=== PATIENT | female | born 1985 | race Caucasian/White ===

== ENCOUNTER 2017-02-18 16:26 | Emergency (ER) | payer OTHER ==
--- NOTE | 2017-02-18 16:40 | ED Physician Documentation ---
PD HPI URI - Stated complaint Stated Complaint: SORE THROAT - Chief complaint Chief Complaint: Heent - History obtained from History obtained from: Patient - History of Present Illness Timing - onset: How many days ago (few) Timing duration: Days Timing details: Gradual onset, Still present Associated symptoms: Fever, Chills, Sore throat, Swollen nodes. 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 HEENT: Tonsil/Adenoidectomy - Present Medications Home Medications: Ambulatory Orders Medication Instructions Recorded Confirmed Omeprazole Magnesium [Prilosec] 10 mg PO DAILY 05/21/16 02/18/17 Cephalexin [Keflex] 500 mg PO TID #20 capsule 02/18/17 Dexamethasone [Decadron] 4 mg PO DAILY #5 tablet 02/18/17 Tramadol HCl 50 mg PO Q6H PRN #20 tablet 02/18/17 - Allergies Allergies/Adverse Reactions: Allergies Allergy/AdvReac Type Severity Reaction Status Date / Time amoxicillin Allergy Unknown Verified 02/18/17 16:58 clindamycin Allergy Unknown Verified 02/18/17 16:58 Penicillins Allergy Unknown Verified 02/18/17 16:58 - Social History Does the pt smoke?: No Smoking Status: Former smoker Does the pt drink ETOH?: No Does the pt have substance abuse?: No PD ED PE NORMAL - Vitals Vital signs reviewed: Yes - General General: Alert and oriented X 3, Well developed/nourished - HEENT HEENT: Ears normal, Moist mucous membranes - Neck Neck: Supple, no meningeal sign, Other (anterior adenopathy) - Cardiac Cardiac: RRR, No murmur - Respiratory Respiratory: Clear bilaterally - Abdomen Abdomen: Soft, Non tender - Derm Derm: Normal color, Warm and dry, No rash Results - Vitals Vitals: Oxygen O2 Source Room air - Labs Labs: Microbiology 02/18/17 16:55 Group A Strep Throat Culture - Final Throat Laboratory Tests 02/18/17 16:55 Group A Strep Rapid Negative PD MEDICAL DECISION MAKING - ED course Complexity details: reviewed results, considered differential, d/w patient Departure - Departure Disposition: 01 Home, Self Care Clinical Impression: Pharyngitis Qualifiers: Pharyngitis/tonsillitis etiology: unspecified etiology Qualified Code(s): J02.9 - Acute pharyngitis, unspecified Condition: Stable Record reviewed to determine appropriate education?: Yes Instructions: ED Pharyngitis Viral Report Pending Prescriptions: Dexamethasone [Decadron] 4 mg PO DAILY #5 tablet Cephalexin [Keflex] 500 mg PO TID #20 capsule Tramadol HCl 50 mg PO Q6H PRN #20 tablet PRN Reason: Pain Comments: Drink lots of fluids. Tylenol for fevers/pains. Can take Ibuprofen as well. Decadron for inflammation daily for few days. If culture is positive, then would want to start the Cephalexin as well. Follow up PMD. Discharge Date/Time: 02/18/17 18:20
[2017-02-18 17:16] LABS: RAPID STREP SCREEN REAGENT QC YELLOW (YELLOW)
[2017-02-18] MEDS ORDERED: DEXAMETHASONE 10 MG/ML VIAL PO STA (17:47)
[2017-02-18] MEDS ORDERED: ACETAMINOPHEN 325 MG TABLET PO STA (17:47)
[2017-02-18] MEDS ORDERED: DEXAMETHASONE 10 MG/ML VIAL ONE (18:02)
[2017-02-18] MEDS ORDERED: ACETAMINOPHEN 325 MG TABLET PO ONE (18:02)
[2017-02-18 18:07] VITALS: BP 145/96
== END 2017-02-18 18:20 | disposition home or self-care (01) ==
LOC: ED 16:26
DX: J02.9 Acute pharyngitis, unspecified (principal); K21.9 Gastro-esophageal reflux disease without esophagitis; Z87.891 Personal history of nicotine dependence
CPT/HCPCS: 87070; 87430; 99283; A9270

== ENCOUNTER 2019-02-16 10:28 | Emergency (ER) | payer OTHER ==
[2019-02-16 10:43] VITALS: BP 170/107
[2019-02-16] MEDS ORDERED: BUFFERED LIDOCAINE 10 ML SYRINGE SUBQ STA (12:35)
--- NOTE | 2019-02-16 12:38 | ED Physician Documentation ---
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 HEENT: Tonsil/Adenoidectomy - Present Medications Home Medications: Ambulatory Orders Medication Instructions Recorded Confirmed Omeprazole Magnesium [Prilosec] 10 mg PO DAILY 05/21/16 02/18/17 Cephalexin [Keflex] 500 mg PO TID #20 capsule 02/18/17 Tramadol HCl 50 mg PO Q6H PRN #20 tablet 02/18/17 dexAMETHasone [Decadron] 4 mg PO DAILY #5 tablet 02/18/17 Sulfamethoxazole/Trimethoprim 1 each PO BID #14 tablet 02/16/19 [Sulfamethoxazole-Tmp Ds Tablet] - Allergies Allergies/Adverse Reactions: Allergies Allergy/AdvReac Type Severity Reaction Status Date / Time amoxicillin Allergy Unknown Verified 02/18/17 16:58 clindamycin Allergy Unknown Verified 02/18/17 16:58 Penicillins Allergy Unknown Verified 02/18/17 16:58 - Social History Does the pt smoke?: No Smoking Status: Never smoker Does the pt drink ETOH?: No Does the pt have substance abuse?: No - Immunizations Immunizations are current?: Yes - POLST Patient has POLST: No PD ED PE NORMAL - Vitals Vital signs reviewed: Yes - General General: Alert and oriented X 3, No acute distress - Derm Derm: Other (There is a small pointed abscess with significant surrounding cellulitis on the posterior medial part of the left upper extremity) - Neuro Neuro: Alert and oriented X 3, Normal speech Results - Vitals Vitals: Vital Signs - 24 hr 02/16/19 10:40 Temperature 36.4 C L Heart Rate 82 Respiratory 20 Rate Blood Pressure 170/107 H O2 Saturation 99 Oxygen O2 Source Room air Procedures - Abscess I&D (location) L arm Preparation: Alcohol, Lidocaine 1% Incision: Incised with scalpel, Purulent drainage, Loculations broken, Culture obtained. No: Packed (too small) Other: Pt tolerated well, Dressing applied, Antibiotic prescribed Departure - Departure Disposition: Home, Self Care Clinical Impression: Abscess Condition: Good Record reviewed to determine appropriate education?: Yes Instructions: ED Abscess IandD Prescriptions: Sulfamethoxazole/Trimethoprim [Sulfamethoxazole-Tmp Ds Tablet] 1 each PO BID #14 tablet Comments: We are performing a wound culture, the results should be done in 48-72 hours. If antibiotic change is necessary we will call you. Return if worse in the meantime, especially if you develop increased pain, fevers, cannot keep down the medication. Otherwise follow-up with your physician in approximately 2-3 days. Your blood pressure was elevated today on check into the emergency department. This does not mean that you have hypertension, it is a common phenomenon to come to the emergency department and have elevated blood pressure. I recommend that you see your primary care physician within the week to have it rechecked when you are feeling better.
== END 2019-02-16 13:04 | disposition home or self-care (01) ==
LOC: ED 10:28
DX: L02.414 Cutaneous abscess of left upper limb (principal); R03.0 Elevated blood-pressure reading, without diagnosis of hypertension
CPT/HCPCS: 10060; 87070; 87181; 87205; 99283

== ENCOUNTER 2019-06-24 17:20 | Emergency (ER) | payer OTHER ==
--- NOTE | 2019-06-24 19:01 | ED Physician Documentation ---
PD HPI URI - Stated complaint Stated Complaint: FEVER/SORE THROAT/COUGH/STUFFY - Chief complaint Chief Complaint: Fever - History obtained from History obtained from: Patient - History of Present Illness Timing - onset: Other (Sick a few weeks ago with cough, body aches chills and runny nose. She was almost better and then got sick again today with fever to 100.4, sinus pain, and cough. 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 HEENT: Tonsil/Adenoidectomy - Present Medications Home Medications: Ambulatory Orders Medication Instructions Recorded Confirmed Omeprazole Magnesium [Prilosec] 10 mg PO DAILY 05/21/16 02/18/17 Cephalexin [Keflex] 500 mg PO TID #20 capsule 02/18/17 Tramadol HCl 50 mg PO Q6H PRN #20 tablet 02/18/17 dexAMETHasone [Decadron] 4 mg PO DAILY #5 tablet 02/18/17 Sulfamethoxazole/Trimethoprim 1 each PO BID #14 tablet 02/16/19 [Sulfamethoxazole-Tmp Ds Tablet] Azithromycin [Zithromax] 1 tab PO DAILY #6 tablet 06/24/19 guaiFENesin/CODEINE [Robitussin AC] 5 - 10 ml PO Q6H PRN #120 ml 06/24/19 predniSONE [Deltasone] 60 mg PO DAILY 5 Days #15 tablet 06/24/19 - Allergies Allergies/Adverse Reactions: Allergies Allergy/AdvReac Type Severity Reaction Status Date / Time acetaminophen [From NyQuil] Allergy Unknown Verified 06/24/19 17:36 amoxicillin Allergy Unknown Verified 02/18/17 16:58 clindamycin Allergy Unknown Verified 02/18/17 16:58 dextromethorphan Allergy Unknown Verified 06/24/19 17:36 [From NyQuil] doxylamine [From NyQuil] Allergy Unknown Verified 06/24/19 17:36 ibuprofen Allergy Unknown Verified 06/24/19 17:36 [From DayQuil Sinus Pressure/Pain] Penicillins Allergy Unknown Verified 02/18/17 16:58 pseudoephedrine Allergy Unknown Verified 06/24/19 17:36 [From DayQuil Sinus Pressure/Pain] - Social History Does the pt smoke?: No Smoking Status: Never smoker Does the pt drink ETOH?: No Does the pt have substance abuse?: No - Immunizations Immunizations are current?: Yes - POLST Patient has POLST: No PD ED PE NORMAL - Vitals Vital signs reviewed: Yes - General General: Alert and oriented X 3, No acute distress - HEENT HEENT: Other (Retracted TMs, oropharynx normal) - Neck Neck: Supple, no meningeal sign, No bony TTP - Cardiac Cardiac: RRR, No murmur - Respiratory Respiratory: No respiratory distress, Clear bilaterally - Neuro Neuro: Alert and oriented X 3, Normal speech Results - Vitals Vitals: Vital Signs - 24 hr 06/24/19 17:36 Temperature 37.2 C Heart Rate 116 H Respiratory 18 Rate Blood Pressure 174/106 H O2 Saturation 98 Oxygen O2 Source Room air - Labs Labs: Laboratory Tests 06/24/19 06/24/19 17:40 17:40 Influenza A (Rapid) Negative Influenza B (Rapid) Negative Group A Strep Rapid Negative PD MEDICAL DECISION MAKING - ED course ED course: The combination of a biphasic illness with retracted TMs and fever would suggest sinusitis meriting Idsa criteria for antibiotic treatment Note that we did not use amoxicillin/penicillin because of allergy to same. Departure - Departure Disposition: 01 Home, Self Care Clinical Impression: Sinusitis Qualifiers: Sinusitis location: maxillary Chronicity: acute Recurrence: non-recurrent Qualified Code(s): J01.00 - Acute maxillary sinusitis, unspecified Condition: Good Record reviewed to determine appropriate education?: Yes Instructions: ED Sinusitis Abx Tx Prescriptions: Azithromycin [Zithromax] 1 tab PO DAILY #6 tablet guaiFENesin/CODEINE [Robitussin AC] 5 - 10 ml PO Q6H PRN #120 ml PRN Reason: Cough predniSONE [Deltasone] 60 mg PO DAILY 5 Days #15 tablet Comments: Off work today and tomorrow. Return for new or worsening symptoms. Wash her hands well. Drink plenty fluids. Your blood pressure was elevated today on check into the emergency department. This does not mean that you have hypertension, it is a common phenomenon to come to the emergency department and have elevated blood pressure. I recommend that you see your primary care physician within the week to have it rechecked when you are feeling better.
[2019-06-24 19:08] VITALS: BP 168/102
== END 2019-06-24 19:08 | disposition home or self-care (01) ==
LOC: ED 17:20
DX: J01.00 Acute maxillary sinusitis, unspecified (principal); R03.0 Elevated blood-pressure reading, without diagnosis of hypertension
CPT/HCPCS: 87070; 87275; 87276; 87430; 99283; 99284

== ENCOUNTER 2021-06-21 10:00 | Emergency (ER) | payer OTHER ==
--- NOTE | 2021-06-21 10:22 | ED Physician Documentation ---
PD HPI URI - Stated complaint Stated Complaint: C+,SOA,COUGH,FEVER - Chief complaint Chief Complaint: Resp - History obtained from History obtained from: Patient - History of Present Illness Timing - onset: How many days ago (3) Timing duration: Days (3) Timing details: Abrupt onset, Still present Associated symptoms: Fever, Chills, Nasal congestion, Sore throat, Dry cough, Dyspnea. No: NVD Contributing factors: Sick contact Improves by: No: Rest Worsened by: Activity, Other (cough) Similar symptoms before: Diagnosis (COVID infection.) Recently seen: Clinic (had J&J vaccine on 06/04, with some aches and malaise for 2 days. Then improved. Cough and fevers for the past 5 days (onset 06/17) and had positive COVID test rapid on 06/18. Increased cough and dyspnea with persistent fevers since onset.) Review of Systems Constitutional: reports: Fever (for 4-5 days), Chills, Myalgias, Fatigue Nose: reports: Rhinorrhea / runny nose, Congestion Cardiac: reports: Chest pain / pressure (with coughing). denies: Palpitations, Pedal edema, Calf pain Respiratory: reports: Dyspnea, Cough, Wheezing GI: reports: Nausea. denies: Abdominal Pain, Vomiting, Diarrhea Skin: denies: Rash Neurologic: reports: Generalized weakness, Headache. denies: Near syncope, Altered mental status Immunocompromised: denies: Immunocompromised PD PAST MEDICAL HISTORY - Past Medical History Cardiovascular: None Respiratory: Asthma (but had not had symptoms for years. No current MDI. 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 HEENT: Tonsil/Adenoidectomy - Present Medications Home Medications: Ambulatory Orders Medication Instructions Recorded Confirmed Omeprazole Magnesium [Prilosec] 10 mg PO DAILY 05/21/16 02/18/17 Tramadol HCl 50 mg PO Q6H PRN #20 tablet 02/18/17 cephALEXin [Keflex] 500 mg PO TID #20 capsule 02/18/17 dexAMETHasone [Decadron] 4 mg PO DAILY #5 tablet 02/18/17 Sulfamethoxazole/Trimethoprim 1 each PO BID #14 tablet 02/16/19 [Sulfamethoxazole-Tmp Ds Tablet] Azithromycin [Zithromax] 1 tab PO DAILY #6 tablet 06/24/19 guaiFENesin/CODEINE [Robitussin AC] 5 - 10 ml PO Q6H PRN #120 ml 06/24/19 predniSONE [Deltasone] 60 mg PO DAILY 5 Days #15 tablet 06/24/19 Albuterol Sulf [Ventolin Hfa 3 - 4 puffs INH Q4HR PRN #1 inhaler 06/21/21 Inhaler] Benzonatate [Tessalon] 100 mg PO TID PRN #20 cap 06/21/21 Ondansetron Odt [Zofran] 4 mg TL Q6H PRN #15 tablet 06/21/21 dexAMETHasone [Decadron] 4 mg PO DAILY #5 tablet 06/21/21 - Allergies Allergies/Adverse Reactions: Allergies Allergy/AdvReac Type Severity Reaction Status Date / Time acetaminophen [From NyQuil] Allergy Unknown Verified 06/24/19 17:36 amoxicillin Allergy Unknown Verified 02/18/17 16:58 clindamycin Allergy Unknown Verified 02/18/17 16:58 dextromethorphan Allergy Unknown Verified 06/24/19 17:36 [From NyQuil] doxylamine [From NyQuil] Allergy Unknown Verified 06/24/19 17:36 ibuprofen Allergy Unknown Verified 06/24/19 17:36 [From DayQuil Sinus Pressure/Pain] Penicillins Allergy Unknown Verified 02/18/17 16:58 pseudoephedrine Allergy Unknown Verified 06/24/19 17:36 [From DayQuil Sinus Pressure/Pain] - Social History Does the pt smoke?: No Smoking Status: Never smoker Does the pt drink ETOH?: No Does the pt have substance abuse?: No - Immunizations Immunizations are current?: Yes - POLST Patient has POLST: No PD ED PE NORMAL - Vitals Vital signs reviewed: Yes (tachycardic. Sats good. ) - General General: Alert and oriented X 3, No acute distress, Well developed/nourished - HEENT HEENT: Ears normal, Pharynx benign. No: Moist mucous membranes - Neck Neck: Supple, no meningeal sign, No adenopathy - Cardiac Cardiac: No: RRR (regular but tachycardic) - Respiratory Respiratory: No: Clear bilaterally (scattered exp wheezes and decreased sounds generally. ) - Abdomen Abdomen: Soft, Non tender - Derm Derm: Normal color, Warm and dry - Extremities Extremities: Normal ROM s pain, No edema, No calf tenderness / cord - Neuro Neuro: Alert and oriented X 3, No motor deficit, Normal speech Results - Vitals Vitals: Vital Signs - 24 hr 06/21/21 06/21/21 06/21/21 10:14 11:26 11:49 Temperature 38.8 C H Heart Rate 114 H 105 H 107 H Respiratory 20 22 Rate Blood Pressure 155/108 H 144/98 H O2 Saturation 96 98 06/21/21 13:04 Temperature 37.8 C Heart Rate 101 H Respiratory 16 Rate Blood Pressure 143/92 H O2 Saturation 96 Oxygen O2 Source Room air - Rads (name of study) chest xray Radiology: Prelim report reviewed (no focal infiltrates. Has diffuse interstitial changes c/w viral pneumonia. ), See rad report PD MEDICAL DECISION MAKING - ED course Complexity details: reviewed results (CXR c/w COVID. ), re-evaluated patient (she feel improved with MDI, meds, and fluids. ), considered differential (unfortunately got COVID soon after J&J vaccine, but presume immunity had not increased enough before exposures (vaccine 2 weeks prior to symptoms, only few days before exposure at work).), d/w patient, d/w health consultant (With pharmacy regarding monoclonal antibodies. We have a limited supply with only 12 doses. Given the patient's recent vaccination on the , her antibody levels should be on the significant increase right now so holding on the infusion.) ED course: She did ask about Ivermectin Rx and I told her my understanding is that the studies are not conclusive (some show improved symptoms sooner, but no change in hospitalization nor hypoxia/oxygen need, so seems placebo/scoring bias, as objective measures not improved) and current CDC does not recommend its use for COVID. Departure - Departure Disposition: 01 Home, Self Care Clinical Impression: COVID-19 virus infection Dyspnea Qualifiers: Dyspnea type: shortness of breath Qualified Code(s): R06.02 - Shortness of breath; R06.00 - Dyspnea, unspecified; R06.01 - Orthopnea Condition: Stable Record reviewed to determine appropriate education?: Yes Instructions: ED URI Viral W Wheezing Prescriptions: Albuterol Sulf [Ventolin Hfa Inhaler] 3 - 4 puffs INH Q4HR PRN #1 inhaler PRN Reason: Shortness Of Air/Wheezing dexAMETHasone [Decadron] 4 mg PO DAILY #5 tablet Benzonatate [Tessalon] 100 mg PO TID PRN #20 cap PRN Reason: Cough Ondansetron Odt [Zofran] 4 mg TL Q6H PRN #15 tablet PRN Reason: Nausea / Vomiting Comments: [facility] Your chest x-ray does not show any localized area of infection. There are some mild general inflammation consistent with viral infection. We can try to improve your airflow and decrease inflammation of the airway and also general body aches with dosing of steroid daily for the next 5 days as well as albuterol inhaler regularly. Benzonatate as needed for cough. Ondansetron if needed for nausea. Try to stay well-hydrated. Tylenol or ibuprofen for fevers and pains. You have an oximeter at home so be watching for lower oxygenation in the lower 90s or below 90. Return if worsening symptoms or low oxygenation uncontrolled vomiting or other concerns. Discharge Date/Time: 06/21/21 13:54
[2021-06-21] MEDS ORDERED: KETOROLAC 15 MG/ML VIAL IVP STA (10:48)
[2021-06-21] MEDS ORDERED: SODIUM CHLORIDE 0.9% 1,000 ML IV STA (10:48)
[2021-06-21] MEDS ORDERED: DEXAMETHASONE 10 MG/ML VIAL IVP STA (10:48)
[2021-06-21] MEDS ORDERED: BENZONATATE 100 MG CAPSULE PO STA (10:48)
[2021-06-21] MEDS ORDERED: ALBUTEROL 1 PUFF INH STA (10:48)
--- NOTE | 2021-06-21 11:13 | XRAY Report ---
PROCEDURE: Chest 1 View X-Ray INDICATIONS: Cough, dyspnea TECHNIQUE: One view of the chest was acquired. COMPARISON: None. FINDINGS: Surgical changes and devices: None. Lungs and pleura: No pleural effusions or pneumothorax. Patchy bilateral mixed interstitial and airs pace opacities. Mediastinum: Mediastinal contours appear normal. Heart size is normal. Bones and chest wall: No suspicious bony lesions. Overlying soft tissues appear unremarkable. IMPRESSION: Patchy mixed bilateral interstitial and airspace opacities. Findings would be consistent with a diagn osis of atypical or viral pneumonia. Reviewed by: Rell Stout MD on 06/21/2021 11:11 AM PDT Approved by: Rell Stout MD on 06/21/2021 11:11 AM PDT Station ID: [id number]
[2021-06-21] MEDS ORDERED: ACETAMINOPHEN 325 MG TABLET PO STA (12:48)
[2021-06-21 13:05] VITALS: BP 143/92
== END 2021-06-21 13:54 | disposition home or self-care (01) ==
LOC: ED 10:00
DX: U07.1 COVID-19 (principal)
CPT/HCPCS: 71045; 94640; 94664; 96361; 96374; 96375; 99283; 99284; A9270

== ENCOUNTER 2021-06-23 15:39 | Inpatient (IN) | payer OTHER ==
--- NOTE | 2021-06-23 17:15 | ED Physician Documentation ---
History of Present Illness - Stated complaint Stated Complaint: C+,SOA - Chief complaint Chief Complaint: Resp - Additonal information Additional information: 35-year-old female presents emergency department for evaluation of worsening COVID-19 symptoms. She received a Kvng & Kvng vaccine on 04 June unfortunately she tested positive on 18 June. She was seen here 2 days ago with symptoms that were at that time felt to be mild. However over the last 48 to 72 hours she has had progressive chills, headache as well as fever. She now has labored breathing and is hypoxic on room air saturations 87%. Patient reports that she has never felt this bad in her life. She feels loopy and out of sorts. She is scared. Patient is a very rare tobacco user. Socially uses alcohol but on the weekends only. Denies any history of heart or lung problem otherwise. She is obese. Review of Systems Constitutional: reports: Fever, Chills, Myalgias, Fatigue Eyes: reports: Reviewed and negative Ears: reports: Reviewed and negative Nose: reports: Reviewed and negative Throat: reports: Reviewed and negative Cardiac: reports: Palpitations. denies: Pedal edema, Calf pain Respiratory: reports: Dyspnea, Cough, Wheezing. denies: Hemoptysis GI: reports: Nausea, Vomiting. denies: Abdominal Pain, Diarrhea : denies: Dysuria, Frequency, Hesitancy Skin: reports: Reviewed and negative Musculoskeletal: reports: Back pain Neurologic: reports: Reviewed and negative Psychiatric: reports: Reviewed and negative PD PAST MEDICAL HISTORY - Past Medical History Cardiovascular: None Respiratory: Asthma (but had not had symptoms for years. No current MDI. 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 HEENT: Tonsil/Adenoidectomy - Present Medications Home Medications: Ambulatory Orders Medication Instructions Recorded Confirmed Omeprazole Magnesium [Prilosec] 10 mg PO DAILY 05/21/16 02/18/17 Tramadol HCl 50 mg PO Q6H PRN #20 tablet 02/18/17 cephALEXin [Keflex] 500 mg PO TID #20 capsule 02/18/17 dexAMETHasone [Decadron] 4 mg PO DAILY #5 tablet 02/18/17 Sulfamethoxazole/Trimethoprim 1 each PO BID #14 tablet 02/16/19 [Sulfamethoxazole-Tmp Ds Tablet] Azithromycin [Zithromax] 1 tab PO DAILY #6 tablet 06/24/19 guaiFENesin/CODEINE [Robitussin AC] 5 - 10 ml PO Q6H PRN #120 ml 06/24/19 predniSONE [Deltasone] 60 mg PO DAILY 5 Days #15 tablet 06/24/19 Albuterol Sulf [Ventolin Hfa 3 - 4 puffs INH Q4HR PRN #1 inhaler 06/21/21 Inhaler] Benzonatate [Tessalon] 100 mg PO TID PRN #20 cap 06/21/21 Ondansetron Odt [Zofran] 4 mg TL Q6H PRN #15 tablet 06/21/21 dexAMETHasone [Decadron] 4 mg PO DAILY #5 tablet 06/21/21 - Allergies Allergies/Adverse Reactions: Allergies Allergy/AdvReac Type Severity Reaction Status Date / Time acetaminophen [From NyQuil] Allergy Unknown Verified 06/23/21 16:58 amoxicillin Allergy Unknown Verified 06/23/21 16:58 clindamycin Allergy Unknown Verified 06/23/21 16:58 dextromethorphan Allergy Unknown Verified 06/23/21 16:58 [From NyQuil] doxylamine [From NyQuil] Allergy Unknown Verified 06/23/21 16:58 ibuprofen Allergy Unknown Verified 06/23/21 16:58 [From DayQuil Sinus Pressure/Pain] Penicillins Allergy Unknown Verified 06/23/21 16:58 pseudoephedrine Allergy Unknown Verified 06/23/21 16:58 [From DayQuil Sinus Pressure/Pain] - Social History Does the pt smoke?: No Smoking Status: Never smoker Does the pt drink ETOH?: No Does the pt have substance abuse?: No - Immunizations Immunizations are current?: Yes - POLST Patient has POLST: No PD ED PE EXPANDED - General General: Alert, Anxious, Other - Cardiac Cardiac: Tachy, Radial strong equal, Cap refill < 2 sec - Respiratory Respiratory: Clear to ausultation shadia, Labored, Other (Mild tachypnea. Faint scattered wheeze. No obvious retractions or accessory muscle use.) - Abdomen Abdomen: Normal Bowel sounds. No: Tender to palpation - Derm Derm: Normal color, Warm and dry. No: Rash - Extremities Extremities: Normal. No: Deformity, Tenderness - Neuro Neuro: Alert and Oriented X 3, CNII-XII intact - GCS Eye Opening: Spontaneous Motor: Obeys Commands Verbal: Oriented Total: 15 Results - Vitals Vitals: Vital Signs - 24 hr 06/23/21 06/23/21 16:58 17:05 Temperature 38.7 C H Heart Rate 105 H 103 H Respiratory 24 22 Rate Blood Pressure 143/90 H 143/90 H O2 Saturation 88 L 95 Oxygen O2 Source Nasal cannula Oxygen Flow Rate 4 - Labs Labs: Laboratory Tests 06/23/21 06/23/21 06/23/21 17:06 17:06 17:19 WBC 2.8 L RBC 3.75 L Hgb 12.4 Hct 36.6 L MCV 97.6 MCH 33.1 H MCHC 33.9 RDW 13.2 Plt Count 119 L MPV 11.0 H Neut # (Auto) 2.1 Lymph # (Auto) 0.5 L Irwin # (Auto) 0.2 Eos # (Auto) 0.0 Baso # (Auto) 0.0 Absolute Nucleated RBC 0.00 Band Neuts % (Manual) Not Reportable Abnorm Lymph % (Manual) Not Reportable Nucleated RBC % 0.0 Neutrophils # (Manual) Not Reportable Lymphocytes # (Manual) Not Reportable Monocytes # (Manual) Not Reportable Eosinophils # (Manual) Not Reportable Basophils # (Manual) Not Reportable Differential Comment MANUA Manual Slide Review Indicated WBC Morphology NORMAL APPEARANCE Platelet Estimate DECREASED (<130,000) Platelet Morphology NORMAL APPEARANCE RBC Morph Micro Appear NORMAL APPEARANCE Sodium 134 L Potassium 2.9 L Chloride 97 L Carbon Dioxide 24 Anion Gap 13.0 BUN 8 Creatinine 0.8 Estimated GFR (MDRD) 82 L Glucose 102 H Calcium 8.3 L Total Bilirubin 0.6 AST 45 H ALT 22 Alkaline Phosphatase 34 L Total Protein 6.5 L Albumin 3.2 Globulin 3.3 Albumin/Globulin Ratio 1.0 Lipase 51 Nasal Adenovirus (PCR) NOT DETECTED Nasal B. parapertussis DNA (PCR) NOT DETECTED Nasal Coronavir 229E PCR NOT DETECTED Nasal Coronavir HKU1 PCR NOT DETECTED Nasal Coronavir NL63 PCR NOT DETECTED Nasal Coronavir OC43 PCR NOT DETECTED Nasal Enterovir/Rhinovir PCR NOT DETECTED Nasal Influenza B PCR NOT DETECTED Nasal Influenza A PCR NOT DETECTED Nasal Parainfluen 1 PCR NOT DETECTED Nasal Parainfluen 2 PCR NOT DETECTED Nasal Parainfluen 3 PCR NOT DETECTED Nasal Parainfluen 4 PCR NOT DETECTED Nasal RSV (PCR) NOT DETECTED Nasal B.pertussis DNA PCR NOT DETECTED Nasal C.pneumoniae (PCR) NOT DETECTED Valente Human Metapneumo PCR NOT DETECTED Nasal M.pneumoniae (PCR) NOT DETECTED Nasal SARS-CoV-2 (PCR) DETECTED A PD MEDICAL DECISION MAKING - ED course Complexity details: reviewed results, re-evaluated patient, considered differential, d/w patient ED course: 35-year-old female who tested positive for COVID-19 on the presents the emergency department with worsening dyspnea, fatigue myalgias and fevers. Noted to be hypoxic here in room air 87%. Saturations improved with 3 liters nasal canula. CXR shows an evolving pneumonia likely secondary to COVID 19. Respiratory PCR remains positive for COVID 19. pt started on Azithromycin and given decadron. Will require inpatient admission for hypoxia in the setting of COVID 19 infection. Remdesivir to be ordered by inpatient providers. I have spoken with Dr. Rizzo who has agreed to evaluate and admit patient. Departure - Departure Disposition: 66 [facility] DC/Xfer Clinical Impression: Pneumonia due to COVID-19 virus, Hypoxia
[2021-06-23 17:18] LABS: HCT - HEMATOCRIT 36.6 % (37.0-47.0); HGB - HEMOGLOBIN 12.4 g/dL (12.0-16.0); LYMPHOCYTES # (AUTO) 0.5 10^3/uL (1.5-3.5); LYMPHOCYTES % (AUTO) 17.4 %; MEAN CORPUSCULAR HEMOGLOBIN 33.1 pg (27.0-31.0); MEAN CORPUSCULAR HGB CONC 33.9 g/dL (32.0-36.0); MEAN CORPUSCULAR VOLUME 97.6 fL (81.0-99.0); MONOCYTES # (AUTO) 0.2 10^3/uL (0.0-1.0); MONOCYTES % (AUTO) 7.1 %; NEUTROPHILS # (AUTO) 2.1 10^3/uL (1.5-6.6); NEUTROPHILS % (AUTO) 75.1 %; PLT - PLATELET COUNT 119 10^3/uL (130-450); RED BLOOD COUNT 3.75 10^6/uL (4.20-5.40); RED CELL DISTRIBUTION WIDTH 13.2 % (12.0-15.0); WHITE BLOOD COUNT 2.8 x10^3/uL (4.8-10.8)
[2021-06-23 17:22] LABS: SLIDE REVIEW? Indicated
[2021-06-23] MEDS ORDERED: AZITHROMYCIN INJ 500 MG in SODIUM CHLORIDE 0.9% 250 ML IV STA ×2 (17:23→17:42)
[2021-06-23] MEDS ORDERED: DOXYCYCLINE INJ 100 MG in SODIUM CHLORIDE 0.9% MINIBAG 100 ML IV STA (17:24)
[2021-06-23] MEDS ORDERED: DEXAMETHASONE 10 MG/ML VIAL PO STA ×2 (17:25→17:39)
[2021-06-23 17:30] LABS: ALBUMIN 3.2 g/dL (3.2-5.5); BILIRUBIN,TOTAL 0.6 mg/dL (0.2-1.0); CALCIUM 8.3 mg/dL (8.5-10.3); CREATININE 0.8 mg/dL (0.4-1.0); POTASSIUM 2.9 mmol/L (3.5-5.0); TOTAL PROTEIN 6.5 g/dL (6.7-8.2)
[2021-06-23] MEDS ORDERED: DEXAMETHASONE 10 MG/ML VIAL IV STA (17:40)
[2021-06-23 17:41] LABS: DIFFERENTIAL COMMENT MANUA; PLATELET ESTIMATE, MANUAL DECREASED (<130,000) (NORMAL); PLATELET MORPHOLOGY NORMAL APPEARANCE (NORMAL); RBC MORPHOLOGY (MULTIPLE) NORMAL APPEARANCE (NORMAL); WBC MORPHOLOGY (MULTIPLE) NORMAL APPEARANCE (NORMAL)
[2021-06-23] MEDS ORDERED: ONDANSETRON 4 MG/2 ML VIAL IVP PRN (17:46)
[2021-06-23] MEDS ORDERED: ACETAMINOPHEN 325 MG TABLET PO PRN (17:46)
--- NOTE | 2021-06-23 18:04 | XRAY Report ---
PROCEDURE: Chest 1 View X-Ray INDICATIONS: COVID TECHNIQUE: One view of the chest was acquired. COMPARISON: 06/21/2021 FINDINGS: Surgical changes and devices: None. Lungs and pleura: Patchy bilateral pulmonary infiltrates have significantly worsened in the interval. Pleural spaces are clear. Mediastinum: Mediastinal contours appear normal. Heart size is normal. Bones and chest wall: No suspicious bony lesions. Overlying soft tissues appear unremarkable. IMPRESSION: Worsening bilateral pulmonary infiltrates consistent with pneumonia Reviewed by: Quinn Disla MD on 06/23/2021 5:03 PM [facility] Approved by: Quinn Disla MD on 06/23/2021 5:03 PM AKDT Station ID: [id number]
[2021-06-23 18:24] LABS: B. PARAPERTUSSIS- RESP PCR PAN NOT DETECTED; B. PERTUSSIS- RESP PCR PANEL NOT DETECTED; C. PNEUMONIAE- RESP PCR PANEL NOT DETECTED; CORONAVIRUS 229E-RESP PCR NOT DETECTED; CORONAVIRUS HKU1-RESP PCR NOT DETECTED; CORONAVIRUS NL63-RESP PCR NOT DETECTED; CORONAVIRUS OC43-RESP PCR NOT DETECTED; HUMAN METAPNEUMOVIRUS NOT DETECTED; INFLUENZA A- RESP PCR PANEL NOT DETECTED; INFLUENZA B - RESP PCR PANEL NOT DETECTED; M. PNEUMONIAE- RESP PCR PANEL NOT DETECTED; PARAINFLUENZA VIRUS 1 NOT DETECTED; PARAINFLUENZA VIRUS 2 NOT DETECTED; PARAINFLUENZA VIRUS 3 NOT DETECTED; PARAINFLUENZA VIRUS 4 NOT DETECTED; RHINOVIRUS/ENTEROVIRUS NOT DETECTED; RSV- RESP PCR PANEL NOT DETECTED; SARS-CoV-2 -RESP PCR PANEL DETECTED
[2021-06-23 18:58] LABS: BILIRUBIN,URINE NEGATIVE (NEGATIVE); GLUCOSE, URINE (UA) NEGATIVE (NEGATIVE); KETONES,URINE (UA) NEGATIVE (NEGATIVE); LEUKOCYTE ESTERASE, URINE NEGATIVE (NEGATIVE); NITRITE,URINE NEGATIVE (NEGATIVE); OCCULT BLOOD,URINE SMALL (NEGATIVE); PROTEIN,URINE 30 mg/dL (NEGATIVE); UROBILINOGEN,URINE 0.2 (NORMAL) E.U./dL (NORMAL)
[2021-06-23 19:00] LABS: CLARITY,URINE CLEAR (CLEAR); HCG UR QUAL NEGATIVE
[2021-06-23 19:05] LABS: BACTERIA,URINE Rare /HPF (None Seen); MUCUS,URINE Few Strands; RBC,URINE 0-5 /HPF (0-5); SQUAMOUS EPITHELIAL CELL,UR FEW Squamous (<= Few); WBC,URINE 0-3 /HPF (0-5)
--- NOTE | 2021-06-23 19:05 | HISTORY & PHYSICAL EXAMINATION ---
Chief Complaint - Chief Complaint Chief Complaint: difficult to breath History of Present Illness - Admitted From Admitted From:: ER - History Obtained From Records Reviewed: [facility] History obtained from: Pt Exam Limitations: no - History of Present Illness HPI Comment/Other: This is a 35-year-old female With a past medical history significant noted for asthma, GERD, obese who presents emergency department for difficult breathing and worsening COVID-19 symptoms. Pt report She received a Kvng & Kvng vaccine but unfortunately she tested positive on 18 June. She was seen at ER 2 days ago. pt was d/c then. But over the last 3 days she has had worsening symptoms including loss of appetite, fever, chills, couth, headache, feeling difficult to breath. Today in ER She is febrile with Temperature 38.7, she is hypoxic on room air saturations 88%. Routine laboratory tests that show patient had a WBC 2.9, potassium 2.9, AST 45, COVID-19 test show positive again. CXR shows Worsening bilaterally pulmonary infiltrated consistence with pneumonia. pt started on Azithromycin and given decadron in ER. Medical team was consulted for admission this patient. Discussed the care goal with the patient, patient stayr she want full code. History - Past Medical History Cardiovascular: reports: None Respiratory: reports: Asthma (but had not had symptoms for years. No current MDI. 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 Patient reported her mother have ureteral cancer at age 60, she is still alive. Social History Notes: Patient reported she occasionally smoke at weekend and socially drink, Denies drug issue. - POLST Patient has POLST: No Meds/Allgy - Home Medications Home Medications: Ambulatory Orders Medication Instructions Recorded Confirmed Albuterol Sulf [Ventolin Hfa 3 - 4 puffs INH Q4HR PRN #1 inhaler 06/21/21 06/24/21 Inhaler] Benzonatate [Tessalon] 100 mg PO TID PRN #20 cap 06/21/21 06/24/21 Ondansetron Odt [Zofran] 4 mg TL Q6H PRN #15 tablet 06/21/21 06/24/21 dexAMETHasone [Decadron] 4 mg PO DAILY #5 tablet 06/21/21 06/24/21 - Allergies Allergies/Adverse Reactions: Allergies Allergy/AdvReac Type Severity Reaction Status Date / Time amoxicillin Allergy Unknown Verified 06/23/21 16:58 clindamycin Allergy Unknown Verified 06/23/21 16:58 dextromethorphan Allergy Unknown Verified 06/23/21 16:58 [From NyQuil] doxylamine [From NyQuil] Allergy Unknown Verified 06/23/21 16:58 ibuprofen Allergy Unknown Verified 06/23/21 16:58 [From DayQuil Sinus Pressure/Pain] Penicillins Allergy Unknown Verified 06/23/21 16:58 pseudoephedrine Allergy Unknown Verified 06/23/21 16:58 [From DayQuil Sinus Pressure/Pain] Review of Systems - Constitutional Constitutional: reports: Fatigue, Fever, Chills, Malaise, Poor appetite - Eyes Eyes: denies: Pain - Ears, Nose & Throat Ears, Nose & Throat: denies: Ear pain, Nosebleeds - Cardiovascular Cariovascular: reports: Exertional dyspnea. denies: Irregular heart rate, Palpitations, Chest pain, Lightheadedness, Syncope - Respiratory Respiratory: reports: Cough, Sputum production, SOB with exertion. denies: Wheezing, Hemoptysis - Gastrointestinal Gastrointestinal: denies: Abdominal pain, Diarrhea, Nausea, Vomiting - Genitourinary Genitourinary: denies: Dysuria - Musculoskeletal Musculoskeletal: reports: Muscle aches - Integumentary Integumentary: denies: Rash - Neurological Neurological: reports: General weakness, Headache. denies: Focal weakness, Dizziness, Numbness, Abnormal gait, Seizures, Incoordination, Slurred speech - Psychiatric Psychiatric: denies: Depression - Endocrine Endocrine: denies: Polyuria - Hematologic/Lymphatic Hematologic/Lymphatic: denies: Anemia Exam - Vital Signs Vital Signs: Vital Signs x48h Temp Pulse Resp BP Pulse Ox 06/23/21 17:05 103 H 22 143/90 H 95 06/23/21 16:58 38.7 C H 105 H 24 143/90 H 88 L - Physical Exam General Appearance: positive: Alert, Mild distress. negative: Lethargic Eyes Bilateral: positive: Normal inspection, No lid inflammation ENT: positive: ENT inspection nml, No signs of dehydration. negative: Purulent nasal drainage Neck: positive: Nml inspection, Trachea midline. negative: Thyromegaly, Tracheal deviation Respiratory: positive: Chest non-tender, Rales Cardiovascular: positive: Regular rate & rhythm, No murmur. negative: Tachycardia, Bradycardia, Systolic murmur, Diastolic murmur Peripheral Pulses: positive: 2+ Abdomen: positive: Non-tender, Nml bowel sounds, No distention. negative: Tenderness Back: positive: Nml inspection Skin: positive: Color nml, Warm, Dry. negative: Cyanosis Extremities: positive: Non-tender, Full ROM, Nml appearance. negative: Calf tenderness Neurologic/Psychiatric: positive: Oriented x3, Motor nml, Sensation nml. n egative: Weakness, Sensory loss, Facial droop, Slurred/abnml speech, Depressed mood/affect Conclusion/Plan - Problem List (1) Respiratory failure with hypoxia Conclusion/Plan: Patient present hypoxia 88% oxygen saturation on room air, patient present shortness breathing. Patient showed in ER 95% oxygen saturation on 4 L of oxygen. It is caused by patient COVID-19 pneumonia. We will treat her for COVID- 19 according to CDC recommendation. We will continue supplemental oxygen as needed, Continue closely vital signs monitor and monitoring manager and laboratory supervisor (2) Pneumonia due to COVID-19 virus Conclusion/Plan: Patient's COVID-19 test is positive, Chest x-ray show bilateral pneumonia likely caused by COVID-19 infection. Patient also present fever, low WBC. We will treat the patient with Remdisivir, Decatron, Lovenox. ER already started with the patient azithromycin, We will continue it and add Rocephin., Continue supplemental oxygen as needed. Continue vital signs monitor closely. (3) Hypokalemia Conclusion/Plan: Patient potassium is 2.9, we will replace, we will continue laboratory supervisor (4) Leukocytopenia Conclusion/Plan: Patient had WBC 2.9, it is likely caused by patient COVID-19 virus infection. We will continue treated COVID-19 Pneumonia, supplemental oxygen, continue laboratory supervisor. (5) Asthma Conclusion/Plan: Patient has a history of asthma, likely not on Asthma exacerbation. now patient had a COVID-19 infection, We will continue treated COVID-19 infection, we will add albuterol breathing treatment as needed. (6) GERD (gastroesophageal reflux disease) Conclusion/Plan: patient had a history of GERD, we will give patient Protonix - Lab Results Fish Bones: 06/24/21 06:20 06/24/21 06:20 Core Measures - Anticipated LOS I expect patient to be DC'd or transferred within 96 hours.: Yes - DVT/VTE - Prophylaxis VTE/DVT Device ordered at admit?: Yes VTE/DVT Prophylaxis med ordered at admit?: Yes
[2021-06-23] MEDS: SODIUM CHLORIDE 0.9% 1,000 ML IV SCH (19:34)
[2021-06-23] MEDS: cefTRIAXone 1 GM in SODIUM CHLORIDE 0.9% MINIBAG 100 ML IV SCH (19:34)
[2021-06-23] MEDS: IBUPROFEN 400 MG TABLET PO PRN (19:35)
[2021-06-23] MEDS: POTASSIUM CHLORIDE 20 MEQ TABLET PO SCH (21:38)
[2021-06-24] MEDS: SODIUM CHLORIDE FLUSH 0.9% 10 ML SYRINGE IVP SCH ×3 (01:08→17:00)
[2021-06-24] MEDS: SODIUM CHLORIDE 0.9% 1,000 ML IV SCH (05:11)
[2021-06-24] MEDS: PANTOPRAZOLE 40 MG VIAL IVP SCH (06:09)
[2021-06-24 07:12] LABS: HCT - HEMATOCRIT 34.9 % (37.0-47.0); HGB - HEMOGLOBIN 11.6 g/dL (12.0-16.0); LYMPHOCYTES % (AUTO) 23.8 %; MEAN CORPUSCULAR HGB CONC 33.2 g/dL (32.0-36.0); MEAN CORPUSCULAR VOLUME 99.4 fL (81.0-99.0); MEAN PLATELET VOLUME 11.8 fL (7.9-10.8); MONOCYTES % (AUTO) 9.7 %; NEUTROPHILS % (AUTO) 66.5 %; PLT - PLATELET COUNT 126 10^3/uL (130-450); RED BLOOD COUNT 3.51 10^6/uL (4.20-5.40); RED CELL DISTRIBUTION WIDTH 13.4 % (12.0-15.0)
[2021-06-24 07:16] LABS: WHITE BLOOD COUNT 1.9 x10^3/uL (4.8-10.8)
[2021-06-24 07:17] LABS: ABNORMAL LYMPHS % (MANUAL) 0 %
[2021-06-24 07:56] LABS: CREATININE 0.6 mg/dL (0.4-1.0)
[2021-06-24 08:17] LABS: BAND NEUTROPHILS % (MANUAL) 16 %; DIFFERENTIAL COMMENT MANUAL DIFFERENTIAL; LYMPHOCYTES # (MANUAL) 0.3 10^3/uL (1.5-3.5); LYMPHOCYTES % (MANUAL) 12 %; MONOCYTES # (MANUAL) 0.1 10^3/uL (0.0-1.0); NEUTROPHILS # (MANUAL) 1.5 10^3/uL (1.5-6.6); REACTIVE LYMPHS % (MANUAL) 2 %
[2021-06-24] MEDS ORDERED: ALBUTEROL NEB 2.5 MG/3 ML INH PRN (08:31)
[2021-06-24] MEDS ORDERED: REMDESIVIR 100MG VIAL 200 MG in SODIUM CHLORIDE 0.9% 250 ML IV ONE (09:00)
[2021-06-24] MEDS: cefTRIAXone 1 GM in SODIUM CHLORIDE 0.9% MINIBAG 100 ML IV SCH (09:06)
[2021-06-24] MEDS: dexAMETHasone 4 MG TABLET PO SCH (09:10)
[2021-06-24] MEDS: POTASSIUM CHLORIDE 20 MEQ TABLET PO SCH ×2 (09:14→21:02)
[2021-06-24] MEDS: ENOXAPARIN 40 MG/0.4 ML SYRINGE SUBQ SCH (09:18)
[2021-06-24] MEDS ORDERED: guaiFENesin 600 MG TABLET PO SCH (10:00)
[2021-06-24] MEDS: AZITHROMYCIN INJ 500 MG in SODIUM CHLORIDE 0.9% 250 ML IV SCH (10:31)
[2021-06-24] MEDS: SACCHAROMYCES BOULARDII 250 MG CAPSULE PO SCH ×2 (10:31→16:59)
--- NOTE | 2021-06-24 12:19 | PHARMACY PROGRESS NOTE ---
- Best Possible Medication History Admit Date and Time: 06/23/21 1746 Processed by: Pharmacy Medication History completed: Yes Patient Interview: Completed Secondary Source(s): Pharmacy records, Insurance records, Previous admit records As the person ultimately responsible for medication therapy, providers are able to order a medication from an existing home medication list in [facility] via the "Reconcile Routine" prior to Confirmation of that medication by network support administrator. Such practice is discouraged except when the physician, in their clinical judgment, deems that a medical need exists for a medication without regard to previous use.
--- NOTE | 2021-06-24 14:46 | PROVIDER PROGRESS NOTE ---
Assessment/Plan - Problem List (1) Respiratory failure with hypoxia Assessment/Plan: 06/24 slight worsening, today pt need 4 liter of O2 and has 93% O2 sats. continue Remdisvir, Decatron, and Lovenox, continue supplemental oxygen as needed. Patient present hypoxia 88% oxygen saturation on room air, patient present shortness breathing. Patient showed in ER 95% oxygen saturation on 4 L of oxygen. It is caused by patient COVID-19 pneumonia. We will treat her for COVID- 19 according to CDC recommendation. We will continue supplemental oxygen as needed, Continue closely vital signs monitor and radiation monitor and laboratory associate (2) Pneumonia due to COVID-19 virus Conclusion/Plan: Patient's COVID-19 test is positive, Chest x-ray show bilateral pneumonia likely caused by COVID-19 infection. Patient also present fever, low WBC. We will treat the patient with Remdisivir, Decatron, Lovenox. ER already started with the patient azithromycin, We will continue it and add Rocephin., Continue supplemental oxygen as needed. Continue vital signs monitor closely. (3) Hypokalemia Conclusion/Plan: 06/24 lab is pending, will replace as needed Patient potassium is 2.9, we will replace, we will continue laboratory associate (4) Leukocytopenia Conclusion/Plan: 06/24 slight worsen, WBC is 1.9, neutropenic precaution as well. continue lab monitor Patient had WBC 2.9, it is likely caused by patient COVID-19 virus infection. We will continue treated COVID-19 Pneumonia, supplemental oxygen, continue laboratory associate. (5) Asthma Conclusion/Plan: Patient has a history of asthma, likely not on Asthma exacerbation. now patient had a COVID-19 infection, We will continue treated COVID-19 infection, we will add albuterol breathing treatment as needed. (6) GERD (gastroesophageal reflux disease) Conclusion/Plan: patient had a history of GERD, we will give patient Protonix - Current Meds Current Meds: Current Medications Generic Name Dose Route Start Last Admin Trade Name Freq PRN Reason Stop Dose Admin Dexamethasone 6 mg 06/24/21 09:00 06/24/21 09:10 Dexamethasone 4 Mg Tablet PO 6 mg DAILY KASSI Administration Enoxaparin Sodium 40 mg 06/24/21 09:00 06/24/21 09:18 Enoxaparin 40 Mg/0.4 Ml Syringe SUBQ 40 mg DAILY KASSI Administration Guaifenesin 600 mg 06/24/21 10:00 06/24/21 10:31 Guaifenesin 600 Mg Tablet PO 600 mg BID KASSI Administration Azithromycin 500 mg/ Sodium 250 mls @ 250 mls/hr 06/24/21 09:00 06/24/21 12:35 Chloride IV Infused DAILY KASSI Infusion Ceftriaxone Sodium 1 gm/ 100 mls @ 200 mls/hr 06/23/21 17:53 06/24/21 10:40 Sodium Chloride IV Infused DAILY KASSI Infusion Ibuprofen 400 mg 06/23/21 17:50 06/23/21 19:35 Ibuprofen 400 Mg Tablet PO 400 mg Q6HR PRN Administration FEVER > 100.5 F Pantoprazole Sodium 40 mg 06/24/21 07:00 06/24/21 06:09 Pantoprazole 40 Mg Vial IVP 40 mg QDAC KASSI Administration Potassium Chloride 40 meq 06/23/21 22:00 06/24/21 09:14 Potassium Chloride 20 Meq Tablet PO 06/26/21 09:01 40 meq BID KASSI Administration Saccharomyces Boulardii 250 mg 06/24/21 09:17 06/24/21 10:31 Saccharomyces Boulardii 250 Mg Capsule PO 250 mg BIDWM KASSI Administration Sodium Chloride 10 ml 06/24/21 01:00 06/24/21 09:18 Sodium Chloride Flush 0.9% 10 Ml Syringe IVP Not Given 0100,0900,1700 KASSI - Lab Result Fish Bone Diagrams: 06/24/21 06:20 06/24/21 06:20 - Additional Planning My Orders: My Active Orders 06/23/21 17:46 Activity Orders [RC] Q2HR IO [RC] IOSHIFT Initiate Bowel Care Protocol [RC] .protocol Initiate Line Care Protocol [RC] QSHIFT Initiate Personal Care Protoco [RC] .protocol Telemetry- [RC] Q4HR Vital Signs [RC] 0800,1600,0000 Ondansetron Inj [Zofran Inj] 4 mg IVP Q6HR PRN Sodium Chloride Flush 0.9% [Normal Saline Flush 0.9%] 10 ml IVP PRN PRN Code Status [OTHERS] Routine Condition of Patient [OTHERS] Routine DVT Prophylaxis [OTHERS] Routine 06/23/21 17:49 SCDs [RC] QSHIFT 06/23/21 17:50 Ibuprofen [Motrin] 400 mg PO Q6HR PRN 06/23/21 17:53 cefTRIAXone [Rocephin] 1 gm Sodium Chloride 0.9% Minibag [Normal Saline 0.9% Minibag] 100 ml IV DAILY 06/23/21 19:11 Oxygen [Oxygen Therapy] [RC] .PRN 06/24/21 01:00 Sodium Chloride Flush 0.9% [Normal Saline Flush 0.9%] 10 ml IVP 0100,0900,1700 06/24/21 07:00 Pantoprazole [Protonix] 40 mg IVP QDAC 06/24/21 07:38 Neutropenic Management [RC] QSHIFT 06/24/21 08:31 Albuterol 2.5 mg INH RTQ4H PRN 06/24/21 08:32 Nebulizer/MDI Tx. [RC] .Q 4 PRN Resp Teach Nebulizer/MDI [RC] .ONCE 06/24/21 09:00 Azithromycin Inj [Zithromax Inj] 500 mg Sodium Chloride 0.9% [Normal Saline 0.9%] 250 ml IV DAILY Enoxaparin [Lovenox] 40 mg SUBQ DAILY dexAMETHasone [Decadron] 6 mg PO DAILY 06/24/21 09:17 Saccharomyces Boulardii [Florastor] 250 mg PO BIDWM 06/24/21 10:00 guaiFENesin [Mucinex] 600 mg PO BID 06/24/21 Lunch Neutropenic (Low Microbial) Diet [DIET] 06/25/21 05:00 BMP - BASIC METABOLIC PANEL [CHEM] DAILYLAB CBC - COMP BLD CT W/AUTO DIFF [HEME] DAILYLAB 06/25/21 09:00 Remdesivir 100Mg Vial [Veklury] 100 mg Sodium Chloride 0.9% 100Ml [Normal Saline 0.9% 100Ml] 100 ml IV DAILY 06/26/21 05:00 BMP - BASIC METABOLIC PANEL [CHEM] DAILYLAB CBC - COMP BLD CT W/AUTO DIFF [HEME] DAILYLAB 06/27/21 05:00 BMP - BASIC METABOLIC PANEL [CHEM] DAILYLAB CBC - COMP BLD CT W/AUTO DIFF [HEME] DAILYLAB 06/28/21 05:00 BMP - BASIC METABOLIC PANEL [CHEM] DAILYLAB CBC - COMP BLD CT W/AUTO DIFF [HEME] DAILYLAB 06/29/21 05:00 BMP - BASIC METABOLIC PANEL [CHEM] DAILYLAB CBC - COMP BLD CT W/AUTO DIFF [HEME] DAILYLAB Subjective - Subjective Patient Reports: Cough Objective Vital Signs: Vital Signs - 24 hr 06/23/21 06/23/21 06/23/21 16:58 17:05 19:05 Temperature 38.7 C H Heart Rate 105 H 103 H 105 H Heart Rate [ Brachial] Respiratory 24 22 19 Rate Blood Pressure 143/90 H 143/90 H 145/94 H Blood Pressure [Left Brachial artery] O2 Saturation 88 L 95 93 06/23/21 06/23/21 06/24/21 19:36 21:00 01:15 Temperature 38.5 C H 37.3 C 36.6 C Heart Rate Heart Rate [ 106 H 92 80 Brachial] Respiratory 20 20 18 Rate Blood Pressure Blood Pressure 132/82 H 119/74 119/79 [Left Brachial artery] O2 Saturation 93 94 95 06/24/21 06/24/21 06/24/21 05:08 08:15 08:28 Temperature 36.4 C L 37.1 C 37.1 C Heart Rate 85 Heart Rate [ 65 85 Brachial] Respiratory 16 20 20 Rate Blood Pressure Blood Pressure 116/81 H 144/98 H [Left Brachial artery] O2 Saturation 97 92 92 06/24/21 09:22 Temperature 37 C Heart Rate Heart Rate [ Brachial] Respiratory 18 Rate Blood Pressure Blood Pressure [Left Brachial artery] O2 Saturation 93 Oxygen O2 Source Nasal cannula Oxygen Flow Rate 4 I&O (Last 24 Hrs): Intake and Output Totals x24h 06/22/21 06/23/21 06/24/21 23:59 23:59 23:59 Intake Total 650 3131.667 Balance 650 3131.667 General: Alert, Oriented x3, Mild distress HEENT: Atraumatic Neck: Supple Lymphatic: no adenopathy Neuro: Alert, Non Focal, Oriented Times 3 Cardiovascular: Regular rate, Normal S1 Respiratory: Chest non-tender, Rales, Other (mild respiratory distress) Abdomen: Normal bowel sounds, Soft Extremities: Normal pulses - Results Results: Laboratory Results WBC 1.9 x10^3/uL (4.8-10.8) L* 06/24/21 06:20 RBC 3.51 10^6/uL (4.20-5.40) L 06/24/21 06:20 Hgb 11.6 g/dL (12.0-16.0) L 06/24/21 06:20 Hct 34.9 % (37.0-47.0) L 06/24/21 06:20 MCV 99.4 fL (81.0-99.0) H 06/24/21 06:20 MCH 33.0 pg (27.0-31.0) H 06/24/21 06:20 MCHC 33.2 g/dL (32.0-36.0) 06/24/21 06:20 RDW 13.4 % (12.0-15.0) 06/24/21 06:20 Plt Count 126 10^3/uL (130-450) L 06/24/21 06:20 MPV 11.8 fL (7.9-10.8) H 06/24/21 06:20 Neut # (Auto) Not Reportable 06/24/21 06:20 Lymph # (Auto) Not Reportable 06/24/21 06:20 [place] # (Auto) Not Reportable 06/24/21 06:20 Eos # (Auto) Not Reportable 06/24/21 06:20 Baso # (Auto) Not Reportable 06/24/21 06:20 Absolute Nucleated RBC Not Reportable 06/24/21 06:20 Total Counted 100 06/24/21 06:20 Band Neuts % (Manual) 16 % (0-10) H 06/24/21 06:20 Reactive Lymphs % (Man) 2 % 06/24/21 06:20 Abnorm Lymph % (Manual) 0 % 06/24/21 06:20 Nucleated RBC % Not Reportable 06/24/21 06:20 Neutrophils # (Manual) 1.5 10^3/uL (1.5-6.6) 06/24/21 06:20 Lymphocytes # (Manual) 0.3 10^3/uL (1.5-3.5) L 06/24/21 06:20 Monocytes # (Manual) 0.1 10^3/uL (0.0-1.0) 06/24/21 06:20 Eosinophils # (Manual) 0.0 10^3/uL (0-0.7) 06/24/21 06:20 Basophils # (Manual) 0.0 10^3/uL (0-0.1) 06/24/21 06:20 Differential Comment MANUAL DIFFERENTIAL 06/24/21 06:20 Manual Slide Review Indicated 06/23/21 17:06 WBC Morphology NORMAL APPEARANCE (NORMAL) 06/23/21 17:06 Platelet Estimate DECREASED (<130,000) (NORMAL) 06/23/21 17:06 Platelet Morphology NORMAL APPEARANCE (NORMAL) 06/23/21 17:06 RBC Morph Micro Appear NORMAL APPEARANCE (NORMAL) 06/23/21 17:06 Sodium 140 mmol/L (135-145) 06/24/21 06:20 Potassium mmol/L (3.5-5.0) 06/24/21 06:20 Chloride 105 mmol/L (101-111) 06/24/21 06:20 Carbon Dioxide 24 mmol/L (21-32) 06/24/21 06:20 Anion Gap 11.0 (6-13) 06/24/21 06:20 BUN 8 mg/dL (6-20) 06/24/21 06:20 Creatinine 0.6 mg/dL (0.4-1.0) 06/24/21 06:20 Estimated GFR (MDRD) 114 (>89) 06/24/21 06:20 Glucose 142 mg/dL (70-100) H 06/24/21 06:20 Calcium 8.0 mg/dL (8.5-10.3) L 06/24/21 06:20 Total Bilirubin 0.6 mg/dL (0.2-1.0) 06/23/21 17:06 AST 45 IU/L (10-42) H 06/23/21 17:06 ALT 22 IU/L (10-60) 06/23/21 17:06 Alkaline Phosphatase 34 IU/L (42-121) L 06/23/21 17:06 Total Protein 6.5 g/dL (6.7-8.2) L 06/23/21 17:06 Albumin 3.2 g/dL (3.2-5.5) 06/23/21 17:06 Globulin 3.3 g/dL (2.1-4.2) 06/23/21 17:06 Albumin/Globulin Ratio 1.0 (1.0-2.2) 06/23/21 17:06 Lipase 51 U/L (22-51) 06/23/21 17:06 Urine Color YELLOW 06/23/21 18:50 Urine Clarity CLEAR (CLEAR) 06/23/21 18:50 Urine pH 6.0 PH (5.0-7.5) 06/23/21 18:50 Ur Specific [place] 1.010 (1.002-1.030) 06/23/21 18:50 Urine Protein 30 mg/dL (NEGATIVE) H 06/23/21 18:50 Urine Glucose (UA) NEGATIVE mg/dL (NEGATIVE) 06/23/21 18:50 Urine Ketones NEGATIVE mg/dL (NEGATIVE) 06/23/21 18:50 Urine Occult Blood SMALL (NEGATIVE) H 06/23/21 18:50 Urine Nitrite NEGATIVE (NEGATIVE) 06/23/21 18:50 Urine Bilirubin NEGATIVE (NEGATIVE) 06/23/21 18:50 Urine Urobilinogen 0.2 (NORMAL) E.U./dL (NORMAL) 06/23/21 18:50 Ur Leukocyte Esterase NEGATIVE (NEGATIVE) 06/23/21 18:50 Urine RBC 0-5 /HPF (0-5) 06/23/21 18:50 Urine WBC 0-3 /HPF (0-5) 06/23/21 18:50 Ur Squamous Epith Cells FEW Squamous (<= Few) 06/23/21 18:50 Urine Bacteria Rare /HPF (None Seen) 06/23/21 18:50 Urine Mucus Few Strands 06/23/21 18:50 Ur Microscopic Review INDICATED 06/23/21 18:50 Urine Culture Comments NOT INDICATED 06/23/21 18:50 Urine HCG, Qual NEGATIVE 06/23/21 18:50 Nasal Adenovirus (PCR) NOT DETECTED 06/23/21 17:19 Nasal B. parapertussis DNA (PCR) NOT DETECTED 06/23/21 17:19 Nasal Coronavir 229E PCR NOT DETECTED 06/23/21 17:19 Nasal Coronavir HKU1 PCR NOT DETECTED 06/23/21 17:19 Nasal Coronavir NL63 PCR NOT DETECTED 06/23/21 17:19 Nasal Coronavir OC43 PCR NOT DETECTED 06/23/21 17:19 Nasal Enterovir/Rhinovir PCR NOT DETECTED 06/23/21 17:19 Nasal Influenza B PCR NOT DETECTED 06/23/21 17:19 Nasal Influenza A PCR NOT DETECTED 06/23/21 17:19 Nasal Parainfluen 1 PCR NOT DETECTED 06/23/21 17:19 Nasal Parainfluen 2 PCR NOT DETECTED 06/23/21 17:19 Nasal Parainfluen 3 PCR NOT DETECTED 06/23/21 17:19 Nasal Parainfluen 4 PCR NOT DETECTED 06/23/21 17:19 Nasal RSV (PCR) NOT DETECTED 06/23/21 17:19 Nasal B.pertussis DNA PCR NOT DETECTED 06/23/21 17:19 Nasal C.pneumoniae (PCR) NOT DETECTED 06/23/21 17:19 [place] Human Metapneumo PCR NOT DETECTED 06/23/21 17:19 Nasal M.pneumoniae (PCR) NOT DETECTED 06/23/21 17:19 Nasal SARS-CoV-2 (PCR) DETECTED A 06/23/21 17:19 ABX Reporting Has patient been on IV antibiotics over the past 48 hours?: Yes Current Medications - Current Medications Current Medications: Active Medications Acetaminophen (Acetaminophen 325 Mg Tablet) 650 mg PO Q4HR PRN PRN Reason: Pain or Fever > 38C (100.4F) Albuterol (Albuterol Neb 2.5 Mg/3 Ml) 2.5 mg INH RTQ4H PRN PRN Reason: Wheezing Dexamethasone (Dexamethasone 4 Mg Tablet) 6 mg PO DAILY [facility] Last Admin: 06/24/21 09:10 Dose: 6 mg Documented by: Enoxaparin Sodium (Enoxaparin 40 Mg/0.4 Ml Syringe) 40 mg SUBQ DAILY [facility] [place] Last Admin: 06/24/21 09:18 Dose: 40 mg Documented by: Guaifenesin (Guaifenesin 600 Mg Tablet) 600 mg PO BID [facility] [place] Last Admin: 06/24/21 10:31 Dose: 600 mg Documented by: Azithromycin 500 mg/ Sodium (Chloride) 250 mls @ 250 mls/hr IV DAILY [facility] [place] Last Infusion: 06/24/21 12:35 Dose: Infused Documented by: Ceftriaxone Sodium 1 gm/ (Sodium Chloride) 100 mls @ 200 mls/hr IV DAILY [facility] [place] Last Infusion: 06/24/21 10:40 Dose: Infused Documented by: Remdesivir 100 mg/ Sodium (Chloride) 100 mls @ 200 mls/hr IV DAILY [facility] [place] Stop: 06/28/21 09:29 Ibuprofen (Ibuprofen 400 Mg Tablet) 400 mg PO Q6HR PRN PRN Reason: FEVER > 100.5 F Last Admin: 06/23/21 19:35 Dose: 400 mg Documented by: Ondansetron HCl (Ondansetron 4 Mg/2 Ml Vial) 4 mg IVP Q6HR PRN PRN Reason: Nausea / Vomiting Pantoprazole Sodium (Pantoprazole 40 Mg Vial) 40 mg IVP QDAC [facility] [place] Last Admin: 06/24/21 06:09 Dose: 40 mg Documented by: Potassium Chloride (Potassium Chloride 20 Meq Tablet) 40 meq PO BID [facility] [place] Stop: 06/26/21 09:01 Last Admin: 06/24/21 09:14 Dose: 40 meq Documented by: Saccharomyces Boulardii (Saccharomyces Boulardii 250 Mg Capsule) 250 mg PO BIDWM [facility] [place] Last Admin: 06/24/21 10:31 Dose: 250 mg Documented by: Sodium Chloride (Sodium Chloride Flush 0.9% 10 Ml Syringe) 10 ml IVP PRN PRN PRN Reason: NEEDED PER PROVIDER ORDERS Sodium Chloride (Sodium Chloride Flush 0.9% 10 Ml Syringe) 10 ml IVP 010 0,0900,1700 [facility] [place] Last Admin: 06/24/21 09:18 Dose: Not Given Documented by: Ascorbic Acid [Vitamin C] 500 mg PO DAILY 06/24/21 Cholecalciferol (Vitamin D3) [Is-D-10,000] 250 mcg PO DAILY 06/24/21 Quercetin Dihydrate 500 mg PO DAILY 06/24/21 Zinc Sulfate 50 mg PO DAILY 06/24/21
[2021-06-24] MEDS ORDERED: TEMAZEPAM 15 MG CAPSULE PO PRN (15:03)
[2021-06-24] MEDS: ACETAMINOPHEN 325 MG TABLET PO PRN (16:59)
[2021-06-24] MEDS: IBUPROFEN 400 MG TABLET PO PRN (21:02)
[2021-06-24] MEDS: guaiFENesin/CODEINE 5 ML UDC PO PRN (21:02)
[2021-06-25] MEDS: SODIUM CHLORIDE FLUSH 0.9% 10 ML SYRINGE IVP SCH ×3 (00:37→18:44)
[2021-06-25] MEDS: guaiFENesin/CODEINE 5 ML UDC PO PRN (03:08)
[2021-06-25] MEDS: IBUPROFEN 400 MG TABLET PO PRN ×2 (03:08→09:43)
[2021-06-25] MEDS: PANTOPRAZOLE 40 MG VIAL IVP SCH (06:28)
[2021-06-25 07:05] LABS: BASOPHILS % (AUTO) 0.3 %; HCT - HEMATOCRIT 34.8 % (37.0-47.0); HGB - HEMOGLOBIN 11.5 g/dL (12.0-16.0); LYMPHOCYTES # (AUTO) 0.6 10^3/uL (1.5-3.5); LYMPHOCYTES % (AUTO) 15.9 %; MEAN PLATELET VOLUME 10.9 fL (7.9-10.8); MONOCYTES # (AUTO) 0.2 10^3/uL (0.0-1.0); MONOCYTES % (AUTO) 5.5 %; NEUTROPHILS % (AUTO) 77.8 %; PLT - PLATELET COUNT 158 10^3/uL (130-450); RED BLOOD COUNT 3.48 10^6/uL (4.20-5.40); RED CELL DISTRIBUTION WIDTH 13.4 % (12.0-15.0); WHITE BLOOD COUNT 3.8 x10^3/uL (4.8-10.8)
[2021-06-25 07:13] LABS: CALCIUM 8.1 mg/dL (8.5-10.3); CREATININE 0.7 mg/dL (0.4-1.0); POTASSIUM 3.6 mmol/L (3.5-5.0)
[2021-06-25] MEDS ORDERED: ALBUTEROL 1 PUFF INH STA (09:07)
[2021-06-25] MEDS: ALBUTEROL 1 PUFF INH PRN ×2 (09:08→12:15)
[2021-06-25] MEDS: cefTRIAXone 1 GM in SODIUM CHLORIDE 0.9% MINIBAG 100 ML IV SCH (09:15)
[2021-06-25] MEDS: ENOXAPARIN 40 MG/0.4 ML SYRINGE SUBQ SCH (09:15)
[2021-06-25] MEDS: SACCHAROMYCES BOULARDII 250 MG CAPSULE PO SCH ×2 (09:15→18:44)
[2021-06-25] MEDS: dexAMETHasone 4 MG TABLET PO SCH (09:15)
[2021-06-25] MEDS: POTASSIUM CHLORIDE 20 MEQ TABLET PO SCH ×2 (09:16→22:15)
[2021-06-25] MEDS ORDERED: LORazepam 0.5 MG TABLET PO PRN (10:14)
[2021-06-25 10:37] LABS: ABG HCO3 21.7 mmol/L (22.0-26.0); ABG PCO2 31 mmHg (34-45); ABG PH 7.46 (7.35-7.45); ABG PO2 68 mmHg (80-100); ABG TCO2 22.7 MMOL/L (21.0-29.0)
[2021-06-25 10:38] LABS: ABG BASE EXCESS -1.3 mmol/L (-2.0-3.0); ABG OXYGEN SATURATION 94 % (94-98); ALLEN TEST POSITIVE
[2021-06-25] MEDS: AZITHROMYCIN INJ 500 MG in SODIUM CHLORIDE 0.9% 250 ML IV SCH (10:42)
[2021-06-25] MEDS: ACETAMINOPHEN 325 MG TABLET PO PRN (10:43)
[2021-06-25] MEDS: REMDESIVIR 100MG VIAL 100 MG in SODIUM CHLORIDE 0.9% 100ML 100 ML IV SCH (12:48)
--- NOTE | 2021-06-25 14:30 | PROVIDER PROGRESS NOTE ---
Assessment/Plan - Problem List (1) Respiratory failure with hypoxia Assessment/Plan: 06/25, pt had fever again, clinically her respiratory status is worsening, we use 35 HHFNC and 65% FiO2 for pt, she reached 96% O2 sats. we will Continue COVID- 19 treatment, continue antibiotics, Continue high flow of oxygen 06/24 slight worsening, today pt need 4 liter of O2 and has 93% O2 sats. continue Remdisvir, Decatron, and Lovenox, continue supplemental oxygen as needed. Patient present hypoxia 88% oxygen saturation on room air, patient present shortness breathing. Patient showed in ER 95% oxygen saturation on 4 L of oxygen. It is caused by patient COVID-19 pneumonia. We will treat her for COVID- 19 according to CDC recommendation. We will continue supplemental oxygen as needed, Continue closely vital signs monitor and security monitor and catheterization laboratory technician (2) Pneumonia due to COVID-19 virus Conclusion/Plan: Patient's COVID-19 test is positive, Chest x-ray show bilateral pneumonia likely caused by COVID-19 infection. Patient also present fever, low WBC. We will treat the patient with Remdisivir, Decatron, Lovenox. ER already started with the patient azithromycin, We will continue it and add Rocephin., Continue supplemental oxygen as needed. Continue vital signs monitor closely. (3) Hypokalemia Conclusion/Plan: 06/25 resolved 06/24 lab is pending, will replace as needed Patient potassium is 2.9, we will replace, we will continue catheterization laboratory technician (4) Leukocytopenia Conclusion/Plan: 06/25 improved. WBC os 3.8, Continue treated with antibiotics, and COVID-19 treatment, continue catheterization laboratory technician 06/24 slight worsen, WBC is 1.9, neutropenic precaution as well. continue lab monitor Patient had WBC 2.9, it is likely caused by patient COVID-19 virus infection. We will continue treated COVID-19 Pneumonia, supplemental oxygen, continue lab oratory monitor. (5) Asthma Conclusion/Plan: Patient has a history of asthma, likely not on Asthma exacerbation. now patient had a COVID-19 infection, We will continue treated COVID-19 infection, we will add albuterol breathing treatment as needed. (6) GERD (gastroesophageal reflux disease) Conclusion/Plan: patient had a history of GERD, we will give patient Protonix (7)bacteremia 06/25, pt had fever, but pt is Covid 19 positive. it seems contaminated in blood culture, we will repeat blood culture again. continue antibiotics treatment. - Current Meds Current Meds: Current Medications Generic Name Dose Route Start Last Admin Trade Name Freq PRN Reason Stop Dose Admin Acetaminophen 650 mg 06/23/21 21:16 06/25/21 10:43 Acetaminophen 325 Mg Tablet PO 650 mg Q4HR PRN Administration Pain or Fever > 38C (100.4F) Albuterol 2 puffs 06/25/21 09:07 06/25/21 12:15 Albuterol 1 Puff INH 07/09/21 09:06 2 puffs Q4HR PRN Administration Wheezing Dexamethasone 6 mg 06/24/21 09:00 06/25/21 09:15 Dexamethasone 4 Mg Tablet PO 6 mg DAILY KASSI Administration Enoxaparin Sodium 40 mg 06/24/21 09:00 06/25/21 09:15 Enoxaparin 40 Mg/0.4 Ml Syringe SUBQ 40 mg DAILY KASSI Administration Guaifenesin/Codeine Phosphate 5 ml 06/24/21 16:38 06/25/21 03:08 Guaifenesin/Codeine 5 Ml Udc PO 5 ml Q6HR PRN Administration Cough Azithromycin 500 mg/ Sodium 250 mls @ 250 mls/hr 06/24/21 09:00 06/25/21 12:56 Chloride IV Infused DAILY KASSI Infusion Ceftriaxone Sodium 1 gm/ 100 mls @ 200 mls/hr 06/23/21 17:53 06/25/21 10:53 Sodium Chloride IV Infused DAILY KSASI Infusion Remdesivir 100 mg/ Sodium 100 mls @ 200 mls/hr 06/25/21 09:00 06/25/21 13:29 Chloride IV 06/28/21 09:29 Infused DAILY KASSI Infusion Ibuprofen 400 mg 06/23/21 17:50 06/25/21 09:43 Ibuprofen 400 Mg Tablet PO 400 mg Q6HR PRN Administration FEVER > 100.5 F Pantoprazole Sodium 40 mg 06/24/21 07:00 06/25/21 06:28 Pantoprazole 40 Mg Vial IVP 40 mg QDAC KASSI Administration Potassium Chloride 40 meq 06/23/21 22:00 06/25/21 09:16 Potassium Chloride 20 Meq Tablet PO 06/26/21 09:01 40 meq BID KASSI Administration Saccharomyces Boulardii 250 mg 06/24/21 09:17 06/25/21 09:15 Saccharomyces Boulardii 250 Mg Capsule PO 250 mg BIDWM KASSI Administration Sodium Chloride 10 ml 06/24/21 01:00 06/25/21 09:16 Sodium Chloride Flush 0.9% 10 Ml Syringe IVP 10 ml 0100,0900,1700 KASSI Administration Temazepam 15 mg 06/24/21 15:03 06/25/21 00:42 Temazepam 15 Mg Capsule PO 15 mg QPM PRN Administration Insomnia - Lab Result Fish Bone Diagrams: 06/25/21 06:46 06/25/21 06:46 - Additional Planning My Orders: My Active Orders 06/24/21 15:03 Temazepam [Restoril] 15 mg PO QPM PRN 06/24/21 16:38 guaiFENesin/CODEINE [Robitussin AC] 5 ml PO Q6HR PRN 06/25/21 09:00 Remdesivir 100Mg Vial [Veklury] 100 mg Sodium Chloride 0.9% 100Ml [Normal Saline 0.9% 100Ml] 100 ml IV DAILY 06/25/21 09:07 Mdi: Albuterol 2 puffs INH Q4HR PRN 06/25/21 09:08 Resp Teach Nebulizer/MDI [RC] .ONCE 06/25/21 10:14 LORazepam [Ativan] 0.5 mg PO Q12H PRN 06/25/21 11:13 Continuous Pulse Oximetry [RC] .cont 06/25/21 11:18 Blood Culture [CULTURE, BLOOD #1] [RM] Urgent 06/25/21 11:25 Blood Culture [CULTURE, BLOOD #2] [RM] Urgent 06/26/21 05:00 BMP - BASIC METABOLIC PANEL [CHEM] DAILYLAB CBC - COMP BLD CT W/AUTO DIFF [HEME] DAILYLAB 06/27/21 05:00 BMP - BASIC METABOLIC PANEL [CHEM] DAILYLAB CBC - COMP BLD CT W/AUTO DIFF [HEME] DAILYLAB 06/28/21 05:00 BMP - BASIC METABOLIC PANEL [CHEM] DAILYLAB CBC - COMP BLD CT W/AUTO DIFF [HEME] DAILYLAB 06/29/21 05:00 BMP - BASIC METABOLIC PANEL [CHEM] DAILYLAB CBC - COMP BLD CT W/AUTO DIFF [HEME] DAILYLAB Subjective - Subjective Patient Reports: Shortness of Breath Objective Vital Signs: Vital Signs - 24 hr 06/24/21 06/24/21 06/25/21 16:47 20:16 00:40 Temperature 37.8 C 37.3 C 37.2 C Heart Rate Heart Rate [ 90 84 84 Brachial] Respiratory 21 18 20 Rate Blood Pressure 139/85 H 142/89 H 140/99 H [Left Brachial artery] O2 Saturation 95 96 96 06/25/21 06/25/21 06/25/21 04:55 09:00 10:24 Temperature 37.2 C 38.9 C H Heart Rate 108 H Heart Rate [ 105 H 111 H Brachial] Respiratory 20 24 Rate Blood Pressure 146/89 H 146/95 H [Left Brachial artery] O2 Saturation 93 96 06/25/21 06/25/21 12:16 12:54 Temperature 37.1 C Heart Rate 104 H Heart Rate [ Brachial] Respiratory 26 H 18 Rate Blood Pressure 115/72 [Left Brachial artery] O2 Saturation 96 Oxygen O2 Source pt on 35/65 Oxygen Flow Rate 4 I&O (Last 24 Hrs): Intake and Output Totals x24h 06/23/21 06/24/21 06/25/21 23:59 23:59 23:59 Intake Total 650 4881.667 2650 Balance 650 4881.667 2650 General: Alert, Cooperative, Mild distress HEENT: Atraumatic Neck: Supple Lymphatic: no adenopathy Neuro: Alert, Non Focal, Oriented Times 3 Cardiovascular: Regular rate, Normal S1, Normal S2 Respiratory: Chest non-tender, Other (Mild respiratory distress) Abdomen: Normal bowel sounds, Soft Extremities: Normal pulses - Results Results: Laboratory Results WBC 3.8 x10^3/uL (4.8-10.8) L 06/25/21 06:46 RBC 3.48 10^6/uL (4.20-5.40) L 06/25/21 06:46 Hgb 11.5 g/dL (12.0-16.0) L 06/25/21 06:46 Hct 34.8 % (37.0-47.0) L 06/25/21 06:46 MCV 100.0 fL (81.0-99.0) H 06/25/21 06:46 MCH 33.0 pg (27.0-31.0) H 06/25/21 06:46 MCHC 33.0 g/dL (32.0-36.0) 06/25/21 06:46 RDW 13.4 % (12.0-15.0) 06/25/21 06:46 Plt Count 158 10^3/uL (130-450) 06/25/21 06:46 MPV 10.9 fL (7.9-10.8) H 06/25/21 06:46 Neut # (Auto) 3.0 10^3/uL (1.5-6.6) 06/25/21 06:46 Lymph # (Auto) 0.6 10^3/uL (1.5-3.5) L 06/25/21 06:46 [place] # (Auto) 0.2 10^3/uL (0.0-1.0) 06/25/21 06:46 Eos # (Auto) 0.0 10^3/uL (0.0-0.7) 06/25/21 06:46 Baso # (Auto) 0.0 10^3/uL (0.0-0.1) 06/25/21 06:46 Absolute Nucleated RBC 0.00 x10^3/uL 06/25/21 06:46 Total Counted 100 06/24/21 06:20 Band Neuts % (Manual) 16 % (0-10) H 06/24/21 06:20 Reactive Lymphs % (Man) 2 % 06/24/21 06:20 Abnorm Lymph % (Manual) 0 % 06/24/21 06:20 Nucleated RBC % 0.0 /100WBC 06/25/21 06:46 Neutrophils # (Manual) 1.5 10^3/uL (1.5-6.6) 06/24/21 06:20 Lymphocytes # (Manual) 0.3 10^3/uL (1.5-3.5) L 06/24/21 06:20 Monocytes # (Manual) 0.1 10^3/uL (0.0-1.0) 06/24/21 06:20 Eosinophils # (Manual) 0.0 10^3/uL (0-0.7) 06/24/21 06:20 Basophils # (Manual) 0.0 10^3/uL (0-0.1) 06/24/21 06:20 Differential Comment MANUAL DIFFERENTIAL 06/24/21 06:20 Manual Slide Review Indicated 06/23/21 17:06 WBC Morphology NORMAL APPEARANCE (NORMAL) 06/23/21 17:06 Platelet Estimate DECREASED (<130,000) (NORMAL) 06/23/21 17:06 Platelet Morphology NORMAL APPEARANCE (NORMAL) 06/23/21 17:06 RBC Morph Micro Appear NORMAL APPEARANCE (NORMAL) 06/23/21 17:06 Bld Gas Analysis Time 1035 06/25/21 10:25 Sample Site LEFT RADIAL 06/25/21 10:25 ABG pH 7.46 (7.35-7.45) H 06/25/21 10:25 ABG pCO2 31 mmHg (34-45) L 06/25/21 10:25 ABG pO2 68 mmHg (80-100) L 06/25/21 10:25 ABG HCO3 21.7 mmol/L (22.0-26.0) L 06/25/21 10:25 ABG Total CO2 22.7 MMOL/L (21.0-29.0) 06/25/21 10:25 ABG O2 Saturation 94 % (94-98) 06/25/21 10:25 ABG Base Excess -1.3 mmol/L (-2.0-3.0) 06/25/21 10:25 Norman Test POSITIVE 06/25/21 10:25 Room Air NO 06/25/21 10:25 O2 Delivery Device HHFNC 06/25/21 10:25 O2 Liters/Min 35.00 LPM 06/25/21 10:25 FiO2 50.00 06/25/21 10:25 Sodium 136 mmol/L (135-145) 06/25/21 06:46 Potassium 3.6 mmol/L (3.5-5.0) 06/25/21 06:46 Chloride 103 mmol/L (101-111) 06/25/21 06:46 Carbon Dioxide 23 mmol/L (21-32) 06/25/21 06:46 Anion Gap 10.0 (6-13) 06/25/21 06:46 BUN 8 mg/dL (6-20) 06/25/21 06:46 Creatinine 0.7 mg/dL (0.4-1.0) 06/25/21 06:46 Estimated GFR (MDRD) 95 (>89) 06/25/21 06:46 Glucose 89 mg/dL (70-100) 06/25/21 06:46 Calcium 8.1 mg/dL (8.5-10.3) L 06/25/21 06:46 Total Bilirubin 0.6 mg/dL (0.2-1.0) 06/23/21 17:06 AST 45 IU/L (10-42) H 06/23/21 17:06 ALT 22 IU/L (10-60) 06/23/21 17:06 Alkaline Phosphatase 34 IU/L (42-121) L 06/23/21 17:06 Total Protein 6.5 g/dL (6.7-8.2) L 06/23/21 17:06 Albumin 3.2 g/dL (3.2-5.5) 06/23/21 17:06 Globulin 3.3 g/dL (2.1-4.2) 06/23/21 17:06 Albumin/Globulin Ratio 1.0 (1.0-2.2) 06/23/21 17:06 Lipase 51 U/L (22-51) 06/23/21 17:06 Urine Color YELLOW 06/23/21 18:50 Urine Clarity CLEAR (CLEAR) 06/23/21 18:50 Urine pH 6.0 PH (5.0-7.5) 06/23/21 18:50 Ur Specific [place] 1.010 (1.002-1.030) 06/23/21 18:50 Urine Protein 30 mg/dL (NEGATIVE) H 06/23/21 18:50 Urine Glucose (UA) NEGATIVE mg/dL (NEGATIVE) 06/23/21 18:50 Urine Ketones NEGATIVE mg/dL (NEGATIVE) 06/23/21 18:50 Urine Occult Blood SMALL (NEGATIVE) H 06/23/21 18:50 Urine Nitrite NEGATIVE (NEGATIVE) 06/23/21 18:50 Urine Bilirubin NEGATIVE (NEGATIVE) 06/23/21 18:50 Urine Urobilinogen 0.2 (NORMAL) E.U./dL (NORMAL) 06/23/21 18:50 Ur Leukocyte Esterase NEGATIVE (NEGATIVE) 06/23/21 18:50 Urine RBC 0-5 /HPF (0-5) 06/23/21 18:50 Urine WBC 0-3 /HPF (0-5) 06/23/21 18:50 Ur Squamous Epith Cells FEW Squamous (<= Few) 06/23/21 18:50 Urine Bacteria Rare /HPF (None Seen) 06/23/21 18:50 Urine Mucus Few Strands 06/23/21 18:50 Ur Microscopic Review INDICATED 06/23/21 18:50 Urine Culture Comments NOT INDICATED 06/23/21 18:50 Urine HCG, Qual NEGATIVE 06/23/21 18:50 Nasal Adenovirus (PCR) NOT DETECTED 06/23/21 17:19 Nasal B. parapertussis DNA (PCR) NOT DETECTED 06/23/21 17:19 Nasal Coronavir 229E PCR NOT DETECTED 06/23/21 17:19 Nasal Coronavir HKU1 PCR NOT DETECTED 06/23/21 17:19 Nasal Coronavir NL63 PCR NOT DETECTED 06/23/21 17:19 Nasal Coronavir OC43 PCR NOT DETECTED 06/23/21 17:19 Nasal Enterovir/Rhinovir PCR NOT DETECTED 06/23/21 17:19 Nasal Influenza B PCR NOT DETECTED 06/23/21 17:19 Nasal Influenza A PCR NOT DETECTED 06/23/21 17:19 Nasal Parainfluen 1 PCR NOT DETECTED 06/23/21 17:19 Nasal Parainfluen 2 PCR NOT DETECTED 06/23/21 17:19 Nasal Parainfluen 3 PCR NOT DETECTED 06/23/21 17:19 Nasal Parainfluen 4 PCR NOT DETECTED 06/23/21 17:19 Nasal RSV (PCR) NOT DETECTED 06/23/21 17:19 Nasal B.pertussis DNA PCR NOT DETECTED 06/23/21 17:19 Nasal C.pneumoniae (PCR) NOT DETECTED 06/23/21 17:19 Valente Human Metapneumo PCR NOT DETECTED 06/23/21 17:19 Nasal M.pneumoniae (PCR) NOT DETECTED 06/23/21 17:19 Nasal SARS-CoV-2 (PCR) DETECTED A 06/23/21 17:19 ABX Reporting Has patient been on IV antibiotics over the past 48 hours?: Yes Current Medications - Current Medications Current Medications: Active Medications Acetaminophen (Acetaminophen 325 Mg Tablet) 650 mg PO Q4HR PRN PRN Reason: Pain or Fever > 38C (100.4F) Last Admin: 06/25/21 10:43 Dose: 650 mg Documented by: Albuterol (Albuterol 1 Puff) 2 puffs INH Q4HR PRN PRN Reason: Wheezing Stop: 07/09/21 09:06 Last Admin: 06/25/21 12:15 Dose: 2 puffs Documented by: Dexamethasone (Dexamethasone 4 Mg Tablet) 6 mg PO DAILY [facility] Last Admin: 06/25/21 09:15 Dose: 6 mg Documented by: Enoxaparin Sodium (Enoxaparin 40 Mg/0.4 Ml Syringe) 40 mg SUBQ DAILY [facility] Last Admin: 06/25/21 09:15 Dose: 40 mg Documented by: Guaifenesin/Codeine Phosphate (Guaifenesin/Codeine 5 Ml Udc) 5 ml PO Q6HR PRN PRN Reason: Cough Last Admin: 06/25/21 03:08 Dose: 5 ml Documented by: Azithromycin 500 mg/ Sodium (Chloride) 250 mls @ 250 mls/hr IV DAILY [facility] Last Infusion: 06/25/21 12:56 Dose: Infused Documented by: Ceftriaxone Sodium 1 gm/ (Sodium Chloride) 100 mls @ 200 mls/hr IV DAILY [facility] Last Infusion: 06/25/21 10:53 Dose: Infused Documented by: Remdesivir 100 mg/ Sodium (Chloride) 100 mls @ 200 mls/hr IV DAILY [facility] Stop: 06/28/21 09:29 Last Infusion: 06/25/21 13:29 Dose: Infused Documented by: Ibuprofen (Ibuprofen 400 Mg Tablet) 400 mg PO Q6HR PRN PRN Reason: FEVER > 100.5 F Last Admin: 06/25/21 09:43 Dose: 400 mg Documented by: Lorazepam (Lorazepam 0.5 Mg Tablet) 0.5 mg PO Q12H PRN PRN Reason: Anxiety Ondansetron HCl (Ondansetron 4 Mg/2 Ml Vial) 4 mg IVP Q6HR PRN PRN Reason: Nausea / Vomiting Pantoprazole Sodium (Pantoprazole 40 Mg Vial) 40 mg IVP QDAC [facility] Last Admin: 06/25/21 06:28 Dose: 40 mg Documented by: Potassium Chloride (Potassium Chloride 20 Meq Tablet) 40 meq PO BID [facility] Stop: 06/26/21 09:01 Last Admin: 06/25/21 09:16 Dose: 40 meq Documented by: Saccharomyces Boulardii (Saccharomyces Boulardii 250 Mg Capsule) 250 mg PO BIDWM [facility] Last Admin: 06/25/21 09:15 Dose: 250 mg Documented by: Sodium Chloride (Sodium Chloride Flush 0.9% 10 Ml Syringe) 10 ml IVP PRN PRN PRN Reason: NEEDED PER PROVIDER ORDERS Sodium Chloride (Sodium Chloride Flush 0.9% 10 Ml Syringe) 10 ml IVP 0100,0900,1700 KASSI Last Admin: 06/25/21 09:16 Dose: 10 ml Documented by: Temazepam (Temazepam 15 Mg Capsule) 15 mg PO QPM PRN PRN Reason: Insomnia Last Admin: 06/25/21 00:42 Dose: 15 mg Documented by: Ascorbic Acid [Vitamin C] 500 mg PO DAILY 06/24/21 Cholecalciferol (Vitamin D3) [Is-D-10,000] 250 mcg PO DAILY 06/24/21 Quercetin Dihydrate 500 mg PO DAILY 06/24/21 Zinc Sulfate 50 mg PO DAILY 06/24/21
[2021-06-25] MEDS ORDERED: BENZONATATE 100 MG CAPSULE PO PRN (20:51)
[2021-06-26] MEDS: SODIUM CHLORIDE FLUSH 0.9% 10 ML SYRINGE IVP SCH ×3 (01:22→17:33)
[2021-06-26 01:35] LABS: ABG HCO3 23.2 mmol/L (22.0-26.0); ABG PCO2 33 mmHg (34-45); ABG PH 7.47 (7.35-7.45); ABG TCO2 24.2 MMOL/L (21.0-29.0)
[2021-06-26 01:36] LABS: ABG BASE EXCESS 0.2 mmol/L (-2.0-3.0); ABG OXYGEN SATURATION 89 % (94-98); ALLEN TEST POSITIVE
[2021-06-26 01:37] LABS: ABG PO2 55 mmHg (80-100)
[2021-06-26] MEDS ORDERED: MORPHINE 2 MG/ML CARPUJECT IVP PRN (01:48)
[2021-06-26] MEDS ORDERED: MORPHINE 2 MG/ML CARPUJECT IVP STA (02:19)
[2021-06-26] MEDS: MORPHINE 2 MG/ML CARPUJECT IVP PRN ×3 (02:30→06:34)
[2021-06-26 06:25] LABS: BASOPHILS % (AUTO) 0.2 %; EOSINOPHILS # (AUTO) 0.1 10^3/uL (0.0-0.7); EOSINOPHILS % (AUTO) 1.2 %; HCT - HEMATOCRIT 39.4 % (37.0-47.0); HGB - HEMOGLOBIN 12.7 g/dL (12.0-16.0); LYMPHOCYTES # (AUTO) 0.7 10^3/uL (1.5-3.5); LYMPHOCYTES % (AUTO) 14.9 %; MEAN CORPUSCULAR HEMOGLOBIN 32.5 pg (27.0-31.0); MEAN CORPUSCULAR HGB CONC 32.2 g/dL (32.0-36.0); MEAN CORPUSCULAR VOLUME 100.8 fL (81.0-99.0); MEAN PLATELET VOLUME 10.7 fL (7.9-10.8); MONOCYTES # (AUTO) 0.3 10^3/uL (0.0-1.0); MONOCYTES % (AUTO) 6.3 %; NEUTROPHILS # (AUTO) 3.8 10^3/uL (1.5-6.6); NEUTROPHILS % (AUTO) 77.2 %; PLT - PLATELET COUNT 168 10^3/uL (130-450); RED BLOOD COUNT 3.91 10^6/uL (4.20-5.40); RED CELL DISTRIBUTION WIDTH 13.4 % (12.0-15.0); WHITE BLOOD COUNT 4.9 x10^3/uL (4.8-10.8)
[2021-06-26 06:36] LABS: CALCIUM 8.3 mg/dL (8.5-10.3); CREATININE 0.5 mg/dL (0.4-1.0); POTASSIUM 4.4 mmol/L (3.5-5.0)
[2021-06-26 06:53] LABS: CALCIUM, IONIZED 1.04 mmol/L (1.15-1.33); VBG PH 7.386 (7.31-7.41)
[2021-06-26] MEDS ORDERED: PANTOPRAZOLE 40 MG TABLET PO SCH (07:00)
[2021-06-26] MEDS ORDERED: CALCIUM GLUCONATE 1,000 MG in SODIUM CHLORIDE 0.9% 50 ML IV ONE ×2 (07:36→16:30)
[2021-06-26 07:44] LABS: ABG HCO3 23.2 mmol/L (22.0-26.0); ABG PCO2 36 mmHg (34-45); ABG PH 7.43 (7.35-7.45); ABG PO2 72 mmHg (80-100); ABG TCO2 24.3 MMOL/L (21.0-29.0)
[2021-06-26 07:45] LABS: ABG BASE EXCESS -0.7 mmol/L (-2.0-3.0); ABG MODE OF VENTILATION SYNCHRONOUS/TIMES; ABG OXYGEN SATURATION 94 % (94-98); ABG RESPIRATORY RATE 16 b/min; ALLEN TEST POSITIVE
[2021-06-26 07:49] LABS: MAGNESIUM 1.8 mg/dL (1.7-2.8); PHOSPHORUS 2.9 mg/dL (2.5-4.6)
[2021-06-26] MEDS ORDERED: MIDAZOLAM 2 MG/2 ML VIAL ONE (09:04)
[2021-06-26] MEDS ORDERED: ROCURONIUM 50 MG/5 ML VIAL ONE (09:34)
[2021-06-26] MEDS: PROPOFOL 500 MG/50 ML 500 MG/50 ML VIAL IV SCH ×5 (09:43→18:44)
--- NOTE | 2021-06-26 09:49 | XRAY Report ---
PROCEDURE: Chest for Line Placement INDICATIONS: Line placement TECHNIQUE: One view of the chest was acquired. COMPARISON: Chest radiographs 06/23/2021 FINDINGS: Surgical changes and devices: An endotracheal tube is seen with tip approximately 2 cm above the rachana na. Lungs and pleura: No pleural effusions or pneumothorax. Diffuse bilateral pulmonary opacities are re demonstrated, slightly worse when compared to the radiographs from 06/23/2021. No pleural effusion or pneumothorax. Mediastinum: Mediastinal contours appear normal. Heart size is normal. Bones and chest wall: No suspicious bony lesions. Overlying soft tissues appear unremarkable. IMPRESSION: 1.Interval placement of endotracheal tube with tip approximately 2 cm above the hill. 2.Increased diffuse bilateral airspace opacities. Reviewed by: Cliff Bishop MD on 06/26/2021 9:48 AM PDT Approved by: Cliff Bishop MD on 06/26/2021 9:48 AM PDT Station ID: [id number]
[2021-06-26] MEDS ORDERED: CHLORHEXIDINE GLUCONATE 15 ML UDC PO SCH (10:00)
[2021-06-26] MEDS ORDERED: PANTOPRAZOLE 40 MG VIAL IVP SCH (10:00)
[2021-06-26] MEDS: SACCHAROMYCES BOULARDII 250 MG CAPSULE PO SCH ×2 (10:26→17:33)
[2021-06-26] MEDS ORDERED: ACETAMINOPHEN 1,000 MG/100 ML 100 ML IV ONE (10:44)
[2021-06-26] MEDS: fentaNYL 100 MCG/2 ML VIAL IVP PRN ×2 (10:57→13:00)
--- NOTE | 2021-06-26 10:57 | XRAY Report ---
PROCEDURE: Chest for Line Placement INDICATIONS: Central line placement, NG tube placement TECHNIQUE: One view of the chest was acquired. COMPARISON: 06/26/2021 FINDINGS: Endotracheal tube terminates within the thoracic trachea approximately 2-3 cm above the hill. Right IJ central line has been placed in the interval since prior study, with distal tip projecting o terese the inferior aspect of the SVC. Nasogastric tube terminates in the stomach in appropriate position. Bilateral patchy interstitial and airspace disease is not significantly changed. There is no obvious pleural effusion or findings of pneumothorax. Normal heart size. IMPRESSION: Appropriate position of support devices. Unchanged airspace opacities. Reviewed by: Rell Stout MD on 06/26/2021 10:56 AM PDT Approved by: Rell Stout MD on 06/26/2021 10:56 AM PDT Station ID: [id number]
[2021-06-26] MEDS ORDERED: fentaNYL 100 MCG/2 ML VIAL ONE (10:58)
[2021-06-26] MEDS ORDERED: VECURONIUM 100 MG in SODIUM CHLORIDE 0.9% 100ML 100 ML IV SCH (11:00)
[2021-06-26 11:22] LABS: ABG BASE EXCESS -0.5 mmol/L (-2.0-3.0); ABG HCO3 22.3 mmol/L (22.0-26.0); ABG PCO2 31 mmHg (34-45); ABG PH 7.47 (7.35-7.45); ABG PO2 73 mmHg (80-100); ABG TCO2 23.3 MMOL/L (21.0-29.0)
[2021-06-26 11:23] LABS: ABG OXYGEN SATURATION 95 % (94-98); ALLEN TEST POSITIVE
[2021-06-26 11:24] LABS: ABG MODE OF VENTILATION SIMV; ABG RESPIRATORY RATE 34 b/min
[2021-06-26] MEDS: SODIUM CHLORIDE FLUSH 0.9% 10 ML SYRINGE IVP PRN ×2 (11:27→11:31)
--- NOTE | 2021-06-26 11:38 | ANESTHESIA PROCEDURE NOTE ---
Anesthesia Intubation Template - Intubation Blade: positive: Stark Tube: Size-enter number (7.5), Marked at teeth-enter cm (22) Route: Oral Placement Confirmation: End tidal CO2, Direct visualization, Bilateral breath sounds Complications: No complications
--- NOTE | 2021-06-26 11:39 | ANESTHESIA PROCEDURE NOTE ---
Anesth Central Line Template - Central Line Central Line Preparation: Consent Obtained, Time out completed, Ultrasound used, Sterile prep and drape Central line location: Right IJ Central line type: Triple lumen Central line catheter tip site resides: Superior vena cava (SVC) Central line aftercare: Chlorhexidine disc placed, Secured, No complications, Bundle checklist complete, Pt tolerated well
[2021-06-26] MEDS: AZITHROMYCIN INJ 500 MG in SODIUM CHLORIDE 0.9% 250 ML IV SCH (11:41)
--- NOTE | 2021-06-26 11:46 | CONSULTATION NOTE ---
Consultation Report: Called by hospitalist at 819 for request for intubation on covid positive patient failing bypap, urgent but not emergent. At about 9am intubated with Patel ant 7.5 ett. Patient desat in 60's despite prolonged 100% BMV pre. To vent by RT, Chest xray shows in good placement. Propofol and Rocuronium given by me for intubation. Central line placed by Berenice Hopkins SRNA under my supervision, see note. Additional Rocuronim 50 mg and Propofol 50 mg given. Arterial line placed by Berenice Hopkins #22 right radius, to monitor with good wave form. Post line CXR in good placement.
[2021-06-26] MEDS: ENOXAPARIN 40 MG/0.4 ML SYRINGE SUBQ SCH (11:58)
[2021-06-26] MEDS ORDERED: DEXAMETHASONE 4 MG/ML VIAL IVP SCH (12:00)
[2021-06-26] MEDS: cefTRIAXone 1 GM in SODIUM CHLORIDE 0.9% MINIBAG 100 ML IV SCH (12:13)
[2021-06-26] MEDS ORDERED: fentaNYL 2,500 MCG/250 ML 2,500 MCG/250 ML BAG IV SCH (13:00)
[2021-06-26] MEDS ORDERED: fentaNYL 100 MCG/2 ML VIAL IVP ONE (13:00)
[2021-06-26] MEDS: REMDESIVIR 100MG VIAL 100 MG in SODIUM CHLORIDE 0.9% 100ML 100 ML IV SCH (13:02)
[2021-06-26 13:40] LABS: ABG HCO3 23.4 mmol/L (22.0-26.0); ABG PCO2 36 mmHg (34-45); ABG PH 7.44 (7.35-7.45); ABG PO2 66 mmHg (80-100); ABG TCO2 24.5 MMOL/L (21.0-29.0)
[2021-06-26 13:41] LABS: ABG BASE EXCESS -0.4 mmol/L (-2.0-3.0); ABG MODE OF VENTILATION SIMV; ABG OXYGEN SATURATION 93 % (94-98); ABG RESPIRATORY RATE 30 b/min
[2021-06-26] MEDS: POTASSIUM CHLORIDE 20 MEQ TABLET PO SCH (14:22)
--- NOTE | 2021-06-26 15:08 | PROVIDER PROGRESS NOTE ---
Subjective - Prog Note Date Prog Note Date: 06/26/21 Prog Note Time: 15:05 - Subjective Pt reports feeling: Worse Subjective: Patient was seen several times today including in the manager of engineering before being intubated. At this time she was very anxious, admitted to difficulty breathing. Patient was seen several times today including in the manager of engineering before being intubated. She was scared and fearful of being intubated Current Medications - Current Medications Current Medications: Current Medications Generic Name Dose Route Start Last Admin Trade Name Freq PRN Reason Stop Dose Admin Acetaminophen 650 mg 06/23/21 21:16 06/25/21 10:43 Acetaminophen 325 Mg Tablet PO 650 mg Q4HR PRN Administration Pain or Fever > 38C (100.4F) Albuterol 2 puffs 06/25/21 09:07 06/25/21 12:15 Albuterol 1 Puff INH 07/09/21 09:06 2 puffs Q4HR PRN Administration Wheezing Benzonatate 100 mg 06/25/21 20:51 06/25/21 22:16 Benzonatate 100 Mg Capsule PO 100 mg TID PRN Administration Cough Chlorhexidine Gluconate 15 ml 06/26/21 10:00 06/26/21 13:06 Chlorhexidine Gluconate 15 Ml Udc PO 15 ml BID KASSI Administration Dexamethasone 6 mg 06/26/21 12:00 06/26/21 11:29 Dexamethasone 4 Mg/Ml Vial IVP 6 mg DAILY KASSI Administration Enoxaparin Sodium 40 mg 06/24/21 09:00 06/26/21 11:58 Enoxaparin 40 Mg/0.4 Ml Syringe SUBQ 40 mg DAILY KASSI Administration Guaifenesin/Codeine Phosphate 5 ml 06/24/21 16:38 06/25/21 03:08 Guaifenesin/Codeine 5 Ml Udc PO 5 ml Q6HR PRN Administration Cough Azithromycin 500 mg/ Sodium 250 mls @ 250 mls/hr 06/24/21 09:00 06/26/21 12:45 Chloride IV Infused DAILY KASSI Infusion Ceftriaxone Sodium 1 gm/ 100 mls @ 200 mls/hr 06/23/21 17:53 06/26/21 13:15 Sodium Chloride IV Infused DAILY KASSI Infusion Remdesivir 100 mg/ Sodium 100 mls @ 200 mls/hr 06/25/21 09:00 06/26/21 13:35 Chloride IV 06/28/21 09:29 Infused DAILY KASSI Infusion Propofol 500 mg in 50 mls @ 5.884 mls/hr 06/26/21 10:00 06/26/21 14:06 Diprivan IV 40 mcg/kg/min .Q8H30M KASSI 23.536 mls/hr Administration Protocol 10 MCG/KG/MIN Vecuronium [place] 100 mg/ 100 mls @ 5.884 mls/hr 06/26/21 11:00 06/26/21 11:53 Sodium Chloride IV 1 mcg/kg/min .Q17H KASSI 5.884 mls/hr Administration Protocol 1 MCG/KG/MIN Fentanyl 2,500 mcg in 250 mls @ 9.807 mls/hr 06/26/21 13:00 06/26/21 14:29 Fentanyl IV 0 mcg/kg/hr .[id number] KASSI 0 mls/hr Titration Protocol 1 MCG/KG/HR Ibuprofen 400 mg 06/23/21 17:50 06/25/21 09:43 Ibuprofen 400 Mg Tablet PO 400 mg Q6HR PRN Administration FEVER > 100.5 F Lorazepam 0.5 mg 06/25/21 10:14 06/25/21 22:16 Lorazepam 0.5 Mg Tablet PO 0.5 mg Q12H PRN Administration Anxiety Morphine Sulfate 1 mg 06/26/21 02:15 06/26/21 06:34 Morphine 2 Mg/Ml Carpuject IVP 1 mg Q2HR PRN Administration Dyspnea Pantoprazole Sodium 40 mg 06/26/21 10:00 06/26/21 11:25 Pantoprazole 40 Mg Vial IVP 40 mg QDAC KASSI Administration Saccharomyces Boulardii 250 mg 06/24/21 09:17 06/26/21 10:26 Saccharomyces Boulardii 250 Mg Capsule PO Not Given BIDWM KASSI Sodium Chloride 10 ml 06/23/21 17:46 06/26/21 11:31 Sodium Chloride Flush 0.9% 10 Ml Syringe IVP 30 ml PRN PRN Administration NEEDED PER PROVIDER ORDERS Sodium Chloride 10 ml 06/24/21 01:00 06/26/21 14:23 Sodium Chloride Flush 0.9% 10 Ml Syringe IVP Not Given 0100,0900,1700 KASSI Temazepam 15 mg 06/24/21 15:03 06/25/21 00:42 Temazepam 15 Mg Capsule PO 15 mg QPM PRN Administration Insomnia Objective - Vital Signs/Intake & Output Vital Signs: Vital Signs Temp Pulse Pulse Resp BP BP Pulse Ox 06/26/21 14:00 39.2 C H 89 30 H 102/66 111/73 97 06/26/21 13:00 39.6 C H 102 H 30 H 117/76 115/66 98 06/26/21 12:08 105 H 06/26/21 12:00 39.6 C H 104 H 31 H 130/88 H 145/74 H 94 Intake & Output: Intake & Output 06/23/21 06/24/21 06/25/21 06/26/21 23:59 23:59 23:59 23:59 Intake Total 650 4881.667 3420 675.080 Output Total 107 Balance 650 4881.667 3420 568.080 - Objective General Appearance: positive: Alert, Moderate distress, Anxious, Other (Patient evaluated several times throughout the day, in the morning prior to being intubated was awake and alert complex subsequent intubation is sedated but occasionally fighting the sedation, jerking, depending on level of medications used) Neck: positive: Nml inspection, Thyroid nml, No JVD, Trachea midline Respiratory: positive: Chest non-tender, Other (Tachypnea, accessory muscle use, shallow breathing, diminished breath sounds bilaterally). negative: No respiratory distress, Wheezes Cardiovascular: positive: No murmur, No gallop, Tachycardia. negative: Extrasystoles Peripheral Pulses: 2+ Dorsalis pedis (R), 2+ Dorsalis pedis (L) Abdomen: positive: Non-tender, No distention Skin: positive: Color nml, No rash Extremities: positive: No pedal edema. negative: Calf tenderness Neurologic/Psychiatric: positive: Oriented x3, CN's nml (2-12). negative: Mood/affect nml (Prior to intubation patient alert oriented x3) - Lab Results Fish Bones: 06/26/21 06:14 06/26/21 06:14 Other Labs: Lab Results x24hrs 06/26/21 06/26/21 06/26/21 Range/Units 13:28 11:32 11:30 WBC (4.8-10.8) x10^3/uL RBC (4.20-5.40) 10^6/uL Hgb (12.0-16.0) g/dL Hct (37.0-47.0) % MCV (81.0-99.0) fL MCH (27.0-31.0) pg MCHC (32.0-36.0) g/dL RDW (12.0-15.0) % Plt Count (130-450) 10^3/uL MPV (7.9-10.8) fL Neut # (Auto) (1.5-6.6) 10^3/uL Lymph # (Auto) (1.5-3.5) 10^3/uL [place] # (Auto) (0.0-1.0) 10^3/uL Eos # (Auto) (0.0-0.7) 10^3/uL Baso # (Auto) (0.0-0.1) 10^3/uL Absolute Nucleated RBC x10^3/uL Nucleated RBC % /100WBC D-Dimer > 1050.0 H (200.0-255.0) ng/mL Bld Gas Analysis Time 1335 Sample Site A-LINE ABG pH 7.44 (7.35-7.45) ABG pCO2 36 (34-45) mmHg ABG pO2 66 L (80-100) mmHg ABG HCO3 23.4 (22.0-26.0) mmol/L ABG Total CO2 24.5 (21.0-29.0) MMOL/L ABG O2 Saturation 93 L (94-98) % ABG Base Excess -0.4 (-2.0-3.0) mmol/L Norman Test NOT APPLICABLE VBG pH (7.31-7.41) Ionized Calcium (1.15-1.33) mmol/L Respiration Rate 30 b/min O2 Delivery Device VENTILATOR O2 Liters/Min LPM Vent Mode SIMV FiO2 100.00 Tidal Volume 400 mL PEEP 15 cmH2O Pressure Support Vent 18 cmH2O EPAP cmH2O IPAP cmH2O Sodium (135-145) mmol/L Potassium (3.5-5.0) mmol/L Chloride (101-111) mmol/L Carbon Dioxide (21-32) mmol/L Anion Gap (6-13) BUN (6-20) mg/dL Creatinine (0.4-1.0) mg/dL Estimated GFR (MDRD) (>89) Glucose (70-100) mg/dL Calcium (8.5-10.3) mg/dL Phosphorus (2.5-4.6) mg/dL Magnesium (1.7-2.8) mg/dL C-Reactive Protein (0-1.0) mg/dL Nasal Screen MRSA (PCR) NEGATIVE (NEGATIVE) 06/26/21 06/26/21 06/26/21 Range/Units 11:11 07:32 06:14 WBC (4.8-10.8) x10^3/uL RBC (4.20-5.40) 10^6/uL Hgb (12.0-16.0) g/dL Hct (37.0-47.0) % MCV (81.0-99.0) fL MCH (27.0-31.0) pg MCHC (32.0-36.0) g/dL RDW (12.0-15.0) % Plt Count (130-450) 10^3/uL MPV (7.9-10.8) fL Neut # (Auto) (1.5-6.6) 10^3/uL Lymph # (Auto) (1.5-3.5) 10^3/uL [place] # (Auto) (0.0-1.0) 10^3/uL Eos # (Auto) (0.0-0.7) 10^3/uL Baso # (Auto) (0.0-0.1) 10^3/uL Absolute Nucleated RBC x10^3/uL Nucleated RBC % /100WBC D-Dimer (200.0-255.0) ng/mL Bld Gas Analysis Time 1111 0703 Sample Site A-LINE RIGHT RADIAL ABG pH 7.47 H 7.43 (7.35-7.45) ABG pCO2 31 L 36 (34-45) mmHg ABG pO2 73 L 72 L (80-100) mmHg ABG HCO3 22.3 23.2 (22.0-26.0) mmol/L ABG Total CO2 23.3 24.3 (21.0-29.0) MMOL/L ABG O2 Saturation 95 94 (94-98) % ABG Base Excess -0.5 -0.7 (-2.0-3.0) mmol/L Norman Test POSITIVE POSITIVE VBG pH (7.31-7.41) Ionized Calcium (1.15-1.33) mmol/L Respiration Rate 34 16 b/min O2 Delivery Device VENTILATOR BiPAP O2 Liters/Min LPM Vent Mode SIMV SYNCHRONOUS/TIMES FiO2 100.00 100.00 Tidal Volume 400 mL PEEP 15 cmH2O Pressure Support Vent 18 cmH2O EPAP 6 cmH2O IPAP 12 cmH2O Sodium (135-145) mmol/L Potassium (3.5-5.0) mmol/L Chloride (101-111) mmol/L Carbon Dioxide (21-32) mmol/L Anion Gap (6-13) BUN (6-20) mg/dL Creatinine (0.4-1.0) mg/dL Estimated GFR (MDRD) (>89) Glucose (70-100) mg/dL Calcium (8.5-10.3) mg/dL Phosphorus (2.5-4.6) mg/dL Magnesium (1.7-2.8) mg/dL C-Reactive Protein 17.1 H (0-1.0) mg/dL Nasal Screen MRSA (PCR) (NEGATIVE) 06/26/21 06/26/21 06/26/21 Range/Units 06:14 06:14 06:14 WBC (4.8-10.8) x10^3/uL RBC (4.20-5.40) 10^6/uL Hgb (12.0-16.0) g/dL Hct (37.0-47.0) % MCV (81.0-99.0) fL MCH (27.0-31.0) pg MCHC (32.0-36.0) g/dL RDW (12.0-15.0) % Plt Count (130-450) 10^3/uL MPV (7.9-10.8) fL Neut # (Auto) (1.5-6.6) 10^3/uL Lymph # (Auto) (1.5-3.5) 10^3/uL [place] # (Auto) (0.0-1.0) 10^3/uL Eos # (Auto) (0.0-0.7) 10^3/uL Baso # (Auto) (0.0-0.1) 10^3/uL Absolute Nucleated RBC x10^3/uL Nucleated RBC % /100WBC D-Dimer (200.0-255.0) ng/mL Bld Gas Analysis Time Sample Site ABG pH (7.35-7.45) ABG pCO2 (34-45) mmHg ABG pO2 (80-100) mmHg ABG HCO3 (22.0-26.0) mmol/L ABG Total CO2 (21.0-29.0) MMOL/L ABG O2 Saturation (94-98) % ABG Base Excess (-2.0-3.0) mmol/L Norman Test VBG pH 7.386 (7.31-7.41) Ionized Calcium 1.04 L (1.15-1.33) mmol/L Respiration Rate b/min O2 Delivery Device O2 Liters/Min LPM Vent Mode FiO2 Tidal Volume mL PEEP cmH2O Pressure Support Vent cmH2O EPAP cmH2O IPAP cmH2O Sodium 135 (135-145) mmol/L Potassium 4.4 (3.5-5.0) mmol/L Chloride 100 L (101-111) mmol/L Carbon Dioxide 22 (21-32) mmol/L Anion Gap 13.0 (6-13) BUN 6 (6-20) mg/dL Creatinine 0.5 (0.4-1.0) mg/dL Estimated GFR (MDRD) 140 (>89) Glucose 85 (70-100) mg/dL Calcium 8.3 L (8.5-10.3) mg/dL Phosphorus 2.9 (2.5-4.6) mg/dL Magnesium 1.8 (1.7-2.8) mg/dL C-Reactive Protein (0-1.0) mg/dL Nasal Screen MRSA (PCR) (NEGATIVE) 06/26/21 06/26/21 Range/Units 06:14 01:24 WBC 4.9 (4.8-10.8) x10^3/uL RBC 3.91 L (4.20-5.40) 10^6/uL Hgb 12.7 (12.0-16.0) g/dL Hct 39.4 (37.0-47.0) % MCV 100.8 H (81.0-99.0) fL MCH 32.5 H (27.0-31.0) pg MCHC 32.2 (32.0-36.0) g/dL RDW 13.4 (12.0-15.0) % Plt Count 168 (130-450) 10^3/uL MPV 10.7 (7.9-10.8) fL Neut # (Auto) 3.8 (1.5-6.6) 10^3/uL Lymph # (Auto) 0.7 L (1.5-3.5) 10^3/uL [place] # (Auto) 0.3 (0.0-1.0) 10^3/uL Eos # (Auto) 0.1 (0.0-0.7) 10^3/uL Baso # (Auto) 0.0 (0.0-0.1) 10^3/uL Absolute Nucleated RBC 0.00 x10^3/uL Nucleated RBC % 0.0 /100WBC D-Dimer (200.0-255.0) ng/mL Bld Gas Analysis Time 0135 Sample Site RIGHT RADIAL ABG pH 7.47 H (7.35-7.45) ABG pCO2 33 L (34-45) mmHg ABG pO2 55 L* (80-100) mmHg ABG HCO3 23.2 (22.0-26.0) mmol/L ABG Total CO2 24.2 (21.0-29.0) MMOL/L ABG O2 Saturation 89 L (94-98) % ABG Base Excess 0.2 (-2.0-3.0) mmol/L Norman Test POSITIVE VBG pH (7.31-7.41) Ionized Calcium (1.15-1.33) mmol/L Respiration Rate b/min O2 Delivery Device HHFNC O2 Liters/Min 40.00 LPM Vent Mode FiO2 95.00 Tidal Volume mL PEEP cmH2O Pressure Support Vent cmH2O EPAP cmH2O IPAP cmH2O Sodium (135-145) mmol/L Potassium (3.5-5.0) mmol/L Chloride (101-111) mmol/L Carbon Dioxide (21-32) mmol/L Anion Gap (6-13) BUN (6-20) mg/dL Creatinine (0.4-1.0) mg/dL Estimated GFR (MDRD) (>89) Glucose (70-100) mg/dL Calcium (8.5-10.3) mg/dL Phosphorus (2.5-4.6) mg/dL Magnesium (1.7-2.8) mg/dL C-Reactive Protein (0-1.0) mg/dL Nasal Screen MRSA (PCR) (NEGATIVE) - Diagnostic Imaging Diagnostic Imaging Results: positive: Prelim report reviewed, Critical result, Read independently Assessment/Plan - Problem List (1) ARDS (adult respiratory distress syndrome) Impression: Patient progressively worsening overnight, from high flow nasal cannula to BiPAP in the manager of engineering. ABGs continue to show low O2 saturation levels, despite maximum settings of BiPAP. Simultaneously, patient was tachypneic with respiratory rates in the 30s using accessory muscles and abdominal muscles. Clinically the decision was made that the patient needed to be intubated. [facility], she was in agreement to being intubated. She gave written consent. I called the Patient's Bakari, explained the situation to him. Called Loraine Salcido CRNA, who kindly agreed to come to the patient's bedside for intubation. Patient was successfully intubated, but it was very difficult to oxygenate her adequately. Bagging was difficult with high resistance, and initially O2 sats were in the 60s and very slowly increased to the 90% range. Chest x-ray after intubation to confirm tube placement also confirms this. Given the rapid decline in the patient's status, attempts were made to transfer the patient. Initially to [facility] in [place] as the patient is a patient, however they have no beds available. Having already called [facility] in [place] and [facility] in [place] earlier in the morning, and being told that no beds were available, and next called [facility] transfer center. I discussed the patient with Dr. Teresa, MICU attending in charge of ECMO patient's and she kindly agreed that the patient would benefit from transfer though she would likely hold off on ECMO for now. There is concern for possible pulmonary embolus, and D-dimer was ordered and came back elevated at greater than 10,000 Unfortunately, no beds are available but patient is currently on standby for transfer once a bed becomes available. Continuing supportive care with ventilatory support, sedated with propofol, and initially with fentanyl as well. Patient is intermittently agitated the vent so vecuronium was utilized for paralysis. At approximately 2:30 in the afternoon patient's blood pressure began to drop significantly into the maps of 50s. Patient does have an arterial and central line. Instructed RN to hold off on fentanyl, wait 30 minutes, but blood pressure did not improve. Ordered a CT angiogram to evaluate for PE, a lactic acid level, and levophed for blood pressure support. Patient is critically ill with severe pulmonary disease threatening life. Patient required greater than 120 minutes of critical care time including direct patient care at bedside, going multiple outside facilities, discussing patient's case with specialist at outside facility, chart review, independent reading of images, consultation with anesthesia, respiratory therapy, and multiple changes to medications, with investigative labs and imaging ordered. (2) Pneumonia due to COVID-19 virus Impression: As above Continue Remdesivir and dexamethasone
[2021-06-26] MEDS ORDERED: IOVERSOL 320 100 ML VIAL IVP ONE (16:24)
[2021-06-26] MEDS ORDERED: MAGNESIUM SULFATE 2 GRAM 2 GM/50 ML BAG IV ONE (18:00)
[2021-06-26 19:02] VITALS: BP 125/86
--- NOTE | 2021-06-27 17:22 | DISCHARGE SUMMARY ---
Discharge Summary Admit Date: 06/27/21 Discharge Date: 06/27/21 Discharging Provider: Reginaldo Perez MD Primary Care Provider: UNKWRene Code Status: Attempt Resuscitation Condition at Discharge: Critical Discharge Disposition: 02 Transfer Acute Care Hosp Discharge Facility Name: [facility] History of Present Illness: "This is a 35-year-old female With a past medical history significant noted for asthma, GERD, obese who presents emergency department for difficult breathing and worsening COVID-19 symptoms. Pt report She received a [employer]vng [employer] Kvng vaccine but unfortunately she tested positive on 18 June. She was seen at ER 2 days ago. pt was d/c then. But over the last 3 days she has had worsening symptoms including loss of appetite, fever, chills, couth, headache, feeling dif ficult to breath. Today in ER She is febrile with Temperature 38.7, she is hypoxic on room air saturations 88%. Routine laboratory tests that show patient had a WBC 2.9, potassium 2.9, AST 45, COVID-19 test show positive again. CXR shows Worsening bilaterally pulmonary infiltrated consistence with pneumonia. pt started on Azithromycin and given decadron in ER. Medical team was consulted for admission this patient. Discussed the care goal with the patient, patient stayr she want full code." - MICHELLE Cary - CONSULTS | PROCEDURES Procedures: Intubation, mechanical ventilation, arterial line placement, central line placement - HOSPITAL COURSE Hospital Course: On admission, patient was started on remdesivir, Decadron and prophylactic Lovenox along with supplemental oxygen for the treatment of her COVID-19 pn eumonia. She was started on 4 L of oxygen supplementation by nasal cannula. By 06/25/2021 patient had developed fever, and worsening hypoxia such that she was requiring high flow nasal cannula at 35 L/min with 65% FiO2. This was able to maintain oxygen saturations of 96%, however she began to clinically worsen throughout the day and ultimately required BiPAP by later that evening/strawhat blocking operator the following day Other vital signs remained stable. Blood gases were drawn during this period and showed persistent hypoxia with oxygen as low as 55 in the strawhat blocking operator of 06/26/2021. She was tachypneic with respiratory rates in the 30s using accessory muscles and abdominal muscles. The decision was made early in the day that the patient required intubation and mechanical ventilation for adequate oxygen support. This was discussed with the patient and though she was fearful, she was in agreement to being intubated. She gave written consent. I called the Patient's Bakari, and explained the situation to him. Patient was successfully intubated, but it was very difficult to oxygenate her adequately. Bagging was difficult with high resistance, and initially O2 sats were in the 60s and very slowly increased to the 90% range. Chest x-ray after intubation to confirm tube placement also confirms this. Given the rapid decline in the patient's status, attempts were made to transfer the patient. Initially to [facility] in [place] as the patient is a patient, however they had no beds available. Via the [facility] transfer center I discussed the patient with Dr. Teresa, MICU attending in charge of ECMO patients and she kindly agreed to accept for transfer and stated she would likely hold off on ECMO for now. There is concern for possible pulmonary embolus, and D-dimer was ordered and came back elevated at greater than 10,000. Although the patient was accepted at [facility], we were told that there would be a good chance that she would not transfer the same day due to lack of bed availability. We continued supportive measures with mechanical ventilation, which required sedating with Fentanyl, maximum dose of propofol, as well as vecuronium for paralysis. An arterial line and central line were also placed. At approximately 2:30 in the afternoon patient's blood pressure began to drop significantly into the maps of 50s. Fentanyl was discontinued temporarily to allow blood pressures to respond when this was not effective she was started on Levophed. I was concerned about a pulmonary embolus and wanted to obtain a CT angiogram of the chest to evaluate for this however she was not quite stable enough for several hours. Ultimately, the plan was devised whereby respiratory therapy was going to escort the patient to the CT scan room, and full staff support would be on standby and we would have an angiogram done to evaluate for PE and if there was any difficulty in this we might consider starting her on therapeutic Lovenox until she was stable enough to tolerate the CT. Around the time this was all arranged, [facility] transfer center called back and stated a bed was available and transportation was immediately arranged and she was life flighted to [facility] in [place]. Patient's was updated with the most recent events and transfer to [place]. - ALLERGIES Allergies/Adverse Reactions: Allergies Allergy/AdvReac Type Severity Reaction Status Date / Time amoxicillin Allergy Unknown Verified 06/23/21 16:58 clindamycin Allergy Unknown Verified 06/23/21 16:58 dextromethorphan Allergy Unknown Verified 06/23/21 16:58 [From NyQuil] doxylamine [From NyQuil] Allergy Unknown Verified 06/23/21 16:58 ibuprofen Allergy Unknown Verified 06/23/21 16:58 [From DayQuil Sinus Pressure/Pain] Penicillins Allergy Unknown Verified 06/23/21 16:58 pseudoephedrine Allergy Unknown Verified 06/23/21 16:58 [From DayQuil Sinus Pressure/Pain] - MEDICATIONS Home Medications: Ambulatory Orders Medication Instructions Recorded Confirmed Albuterol Sulf [Ventolin Hfa 3 - 4 puffs INH Q4HR PRN #1 inhaler 06/21/21 06/24/21 Inhaler] Benzonatate [Tessalon] 100 mg PO TID PRN #20 cap 06/21/21 06/24/21 Ondansetron Odt [Zofran] 4 mg TL Q6H PRN #15 tablet 06/21/21 06/24/21 dexAMETHasone [Decadron] 4 mg PO DAILY #5 tablet 06/21/21 06/24/21 Ascorbic Acid [Vitamin C] 500 mg PO DAILY 06/24/21 06/24/21 Cholecalciferol (Vitamin D3) 250 mcg PO DAILY 06/24/21 06/24/21 [Is-D-10,000] Quercetin Dihydrate 500 mg PO DAILY 06/24/21 06/24/21 Zinc Sulfate 50 mg PO DAILY 06/24/21 06/24/21 - PHYSICAL EXAM AT DISCHARGE General Appearance: positive: Moderate distress, Other (Chemically sedated) Respiratory: positive: Other (Diminished breath sounds bilaterally) Cardiovascular: positive: No murmur, No gallop, Tachycardia Peripheral Pulses: positive: 2+ Abdomen: positive: Non-tender, No organomegaly, Nml bowel sounds, No distention Back: positive: Nml inspection Skin: positive: Color nml Extremities: positive: No pedal edema Neurologic/Psychiatric: positive: Oriented x3 - LABS Result Diagrams: 06/26/21 06:14 06/26/21 06:14 - DIAGNOSTIC IMAGING Diagnostic Imaging Results: Final report reviewed, Read contemporaneously - TIME SPENT Time Spent in Discharge (Minutes): 42
== END 2021-06-26 19:57 | disposition short-term general hospital (02) | DRG 208 ==
LOC: ED 15:39 → MS2 17:46 → ICU 06-26 02:37
PROVIDERS: ADMIT Nurse Practitioner Gerontology; ATTEND Nurse Practitioner Gerontology
PROC: 5A1935Z Respiratory Ventilation, Less than 24 Consecutive Hours (ICD-10-PCS; principal; 2021-06-26)
PROC: 0BH17EZ Insertion of Endotracheal Airway into Trachea, Via Natural or Artificial Opening (ICD-10-PCS; 2021-06-26)
PROC: 03HY32Z Insertion of Monitoring Device into Upper Artery, Percutaneous Approach (ICD-10-PCS; 2021-06-26)
PROC: 02HV33Z Insertion of Infusion Device into Superior Vena Cava, Percutaneous Approach (ICD-10-PCS; 2021-06-26)
DX: U07.1 COVID-19 (principal); J12.82 Pneumonia due to coronavirus disease 2019; I26.99 Other pulmonary embolism without acute cor pulmonale; J96.91 Respiratory failure, unspecified with hypoxia; J45.909 Unspecified asthma, uncomplicated; K21.9 Gastro-esophageal reflux disease without esophagitis; E87.6 Hypokalemia; D72.819 Decreased white blood cell count, unspecified; E66.9 Obesity, unspecified; Z68.39 Body mass index [BMI] 39.0-39.9, adult
CPT/HCPCS: 0202U; 36415; 36600; 71045; 80048; 80053; 81001; 81025; 81599; 82330; 82803; 83605; 83690; 83735; 84100; 85025; 85379; 86140; 87040; 87150; 94002; 94640; 94660; 99284; 99285; A9270; C9399; J0131; J1650; J3010; J7040; J8540; 81003; 87086